=== PATIENT | female | born 1940 | race Caucasian/White ===

== ENCOUNTER 2016-06-02 15:30 | Inpatient (IN) | payer MEDICARE, BC ==
[2016-06-02] MEDS ORDERED: traMADol 50 MG TAB PO PRN (18:26)
[2016-06-02] MEDS ORDERED: PROCHLORPERAZINE 5 MG TAB PO PRN (18:26)
[2016-06-02 18:51] LABS: Basophils % (A) 0 %; CH 31.6; CHCM 32.6; Eosinophils # (A) 0.1 k/uL (0-0.7); Eosinophils % (A) 1 %; HCT 45.9 % (34.0-46.0); HDW 2.25; Luc # (Auto) 0.15; Luc % (Auto) 1; Lymphocytes # (A) 0.9 k/uL (1.0-4.8); Lymphocytes % (A) 9 %; MCH 31.8 pg (25.0-35.0); MCHC 32.6 g/dL (31.0-37.0); MCV 97.4 fL (80.0-100.0); Monocytes # (A) 0.5 k/uL (0-1.0); Monocytes % (A) 5 %; Neutrophils % (A) 84 %; RBC 4.71 m/uL (3.80-5.40); RDW 14.8 % (11.5-15.5); WBC 10.7 k/uL (3.8-10.6); WBC (Perox) 10.96
[2016-06-02 19:02] LABS: Anion Gap 7 mmol/L; Blood Urea Nitrogen 22 mg/dL (7-17); Calcium 8.4 mg/dL (8.4-10.2); Carbon Dioxide 24 mmol/L (22-30); Chloride 103 mmol/L (98-107); Glucose 116 mg/dL (74-99); Non-African American GFR(MDRD) >60 (>60 ml/min/1.73 sqM); Potassium 4.7 mmol/L (3.5-5.1); Sodium 134 mmol/L (137-145)
--- NOTE | 2016-06-02 19:19 | XR ---
EXAMINATION TYPE: XR chest 2V DATE OF EXAM: 06/02/2016 7:10 PM COMPARISON: Chest x-ray January 21, 2016. HISTORY: Shortness of breath TECHNIQUE: Frontal and lateral views of the chest are obtained. FINDINGS: There is chronic emphysematous change without suspicious focal air space opacity, pleural effusion, or pneumothorax seen. The cardiac silhouette size is stable and enlarged. Anterior fusion plate lower cervical spine is redemonstrated. Cholecystectomy clips are redemonstrated on lateral vie w. IMPRESSION: Chronic changes and cardiomegaly without acute pulmonary process. No significant change from prior.
--- NOTE | 2016-06-02 19:24 | CT ---
EXAMINATION TYPE: CT brain wo con DATE OF EXAM: 06/02/2016 7:11 PM HISTORY: Patient appears confused CT DLP: 1207 mGycm. Automated Exposure Control for Dose Reduction was Utilized. TECHNIQUE: CT scan of the head is performed without contrast. COMPARISON: None. FINDINGS: There is no acute intracranial hemorrhage or midline shift identified. There is diffuse v entricular and sulcal prominence consistent with diffuse age-related cerebral atrophy. There is low- attenuation in the periventricular white matter consistent with chronic small vessel ischemic change. The lenses are thinned bilaterally. Visualized paranasal sinuses are clear. IMPRESSION: No acute intracranial hemorrhage or midline shift. There is mild diffuse age-related ce rebral atrophy and mild to moderate chronic small vessel ischemic change noted.
[2016-06-02] MEDS: SYMBICORT 80-4.5 MCG INHALER INHALATION SCH (20:41)
[2016-06-02] MEDS: FUROSEMIDE 10 MG TAB PO SCH (23:12)
[2016-06-02] MEDS: ASPIRIN 81 MG CHEW PO SCH (23:12)
[2016-06-02] MEDS: POTASSIUM CHLORIDE ER 10 MEQ TAB.ER.PRT PO SCH (23:12)
[2016-06-02] MEDS: RIVAROXABAN 15 MG TAB PO SCH (23:12)
[2016-06-02 23:25] LABS: Appearance,Urine Turbid (Clear); Bacteria,Urine Many /hpf; Bilirubin,Urine Negative (Negative); Glucose,Urine (UA) Negative (Negative); Ketones,Urine Negative (Negative); Leukocyte Esterase,Urine Large (Negative); Nitrite,Urine Negative (Negative); PH, Urine 6.5 (5.0-8.0); Particle Count 164911; Protein,Urine 1+ (Negative); RBC,Urine 52 /hpf (0-5); Specific Gravity,Urine 1.015 (1.001-1.035); Squamous Epithelial Cell,Urine 14 /hpf (0-4); UA Billing (MACRO vs. MICRO) MICRO; Urobilinogen,Urine <2.0 mg/dL (<2.0); WBC,Urine >182 /hpf (0-5)
[2016-06-03] MEDS: SYMBICORT 80-4.5 MCG INHALER INHALATION SCH ×2 (07:23→21:34)
[2016-06-03] MEDS: RIVAROXABAN 15 MG TAB PO SCH ×2 (08:04→21:24)
[2016-06-03] MEDS: PANTOPRAZOLE 40 MG TABLET PO SCH (08:04)
[2016-06-03] MEDS: CHOLECALCIFEROL 1,000 UNIT TAB PO SCH (08:05)
[2016-06-03] MEDS: LOSARTAN 50 MG TAB PO SCH (08:05)
[2016-06-03] MEDS: ESCITALOPRAM 20 MG TAB PO SCH (08:05)
[2016-06-03] MEDS: LORATADINE 10 MG TAB PO SCH (08:05)
[2016-06-03] MEDS: ARTIFICIAL TEARS-HYPROMELLOSE DROPS 15 ML BTL BOTH EYES PRN (08:05)
[2016-06-03] MEDS: LEVOFLOXACIN 500 MG TAB PO SCH (12:34)
[2016-06-03 14:30] VITALS: BMI 34.1
--- NOTE | 2016-06-03 14:38 | US ---
EXAMINATION TYPE: US venous doppler duplex LE BI DATE OF EXAM: 06/03/2016 2:10 PM COMPARISON: See PACS CLINICAL HISTORY: calf tenderness. SIDE PERFORMED: VESSELS IMAGED: External Iliac Vein (EIV) Common Femoral Vein Deep Femoral Vein Greater Saphenous Vein * Femoral Vein Popliteal Vein Small Saphenous Vein * Proximal Calf Veins (* superficial vessels) Right Leg: Negative for DVT Left Leg: Negative for DVT Patient of large body habitus with poor venous return. IMPRESSION: No evidence for PE.
--- NOTE | 2016-06-03 14:39 | P.HPIM ---
History of Present Illness H&P Date: 06/03/16 Chief Complaint: Generalized weakness 76-year-old female who was a direct admission to be evaluated for frequent falls generalized weakness "legs just give out from under me. Patient was admitted for the above-mentioned symptoms. PT OT eval has been ordered. Patient reportedly on April 20 underwent back surgery per an orthopedic surgeon in [place] after the procedure the patient [facility] were patient developed a pulmonary emboli started on Xarelto was admitted from [facility] to [facility]. Patient recuperated and return back to [facility] to continue with the rehab had been home only one week. Patient stated after being home continue to feel fatigued and inability to participate in ADLs with increased confusion Patient did have a CAT scan of the brain without contrast that showed no acute intracranial hemorrhage. diffuse moderate to mild chronic small vessel ischemic changes noted patient did have a chest x-ray of the chest did not show any acute process Review of Systems Essentially unremarkable except as mentioned in the present illness Past Medical History Past Medical History: Asthma, Cancer, Chest Pain / Angina, Heart Failure, COPD, Deep Vein Thrombosis (DVT), GERD/Reflux, GI Bleed, Hyperlipidemia, Hypertension , Pulmonary Embolus (PE) Additional Past Medical History / Comment(s): HX MULT KIDNEY STONES ZENAIDA. BACK, NECK PAIN. HIATAL HERNIA. HX OF SKIN CA. POOR BALANCE, RECENT FALLS.POOR APPETITE PAST WEEK, C-DIFF >5 YEARS AGO History of Any Multi-Drug Resistant Organisms: None Reported Past Surgical History: Back Surgery, Cholecystectomy, Hysterectomy, Joint Replacement, Tonsillectomy Additional Past Surgical History / Comment(s): EYE LIFTS ZENAIDA. PARTIAL HYSTERECTOMY, NECK SURGERY X2, WRIST SURGERY, ZENAIDA KNEE REPLACEMENTS. Past Anesthesia/Blood Transfusion Reactions: Previous Problems w/ Anesthesia Additional Past Anesthesia/Blood Transfusion Reaction / Comment(s): WOKE UP WITH SEVERE HEADACHE. Past Psychological History: Anxiety, Depression Additional Psychological History / Comment(s): LIVES AT HOME WITH HER SPOUSE, HAS TOTAL 5 STEPS INTO HOME, GETS PT AND NURSE AIDE. HAS WALKER/W/C IF NEEDED. FAMILY STATED IF YOU HAVE ANY QUESTIONS ON PT CALL EITHER DAUGHTER WILDER AT [phone] OR JOSR-SON AT [phone]- BECAUSE D/T HUSBANDS MEDICAL ISSUES HE' S NOT RELIABLE SOURCE OF INFO. Smoking Status: Current every day smoker Past Alcohol Use History: Rare Additional Past Alcohol Use History / Comment(s): STARTED SMOKING 1965 CURRENTLY DOWN TO 3-4 CIG PER DAY Past Drug Use History: None Reported - Past Family History Mother Family Medical History: Cancer Additional Family Medical History / Comment(s): mother from kidney cancer Brother(s) Family Medical History: Cancer Additional Family Medical History / Comment(s): brother of kidney cancer Medications and Allergies Home Medications Medication Instructions Recorded Confirmed Type Fluticasone/Salmeterol [Advair 1 puff INHALATION RT-BID 10/30/14 06/02/16 History 250-50 Diskus] ALPRAZolam [Xanax] 0.5 mg PO TID PRN 06/02/16 06/02/16 History Aspirin EC [Ecotrin Low Dose] 81 mg PO HS 06/02/16 06/02/16 History Carboxymethylcellulose Sodium 1 drop BOTH EYES TID PRN 06/02/16 06/02/16 History [Refresh Tears] Cetirizine HCl [Zyrtec] 10 mg PO QAM 06/02/16 06/02/16 History Cholecalciferol [Vitamin D3] 2,000 unit PO DAILY 06/02/16 06/02/16 History Escitalopram [Lexapro] 20 mg PO QAM 06/02/16 06/02/16 History Furosemide [Lasix] 10 mg PO Q48H 06/02/16 06/02/16 History Losartan Potassium [Cozaar] 100 mg PO QAM 06/02/16 06/02/16 History Omeprazole 40 mg PO QAM 06/02/16 06/02/16 History Potassium Chloride ER [K-Dur 10] 10 meq PO Q48H 06/02/16 06/02/16 History Prochlorperazine [Compazine] 5 mg PO Q6HR PRN 06/02/16 06/02/16 History Rivaroxaban [Xarelto] 15 mg PO BID 06/02/16 06/02/16 History traMADol HCL [Ultram] 100 mg PO TID PRN 06/02/16 06/02/16 History Allergies Allergy/AdvReac Type Severity Reaction Status Date / Time adhesive Allergy Unknown Red , Verified 06/02/16 17:53 Irritated skin Penicillins Allergy Unknown Unknown Verified 12/06/14 11:38 Childhood Rtchoqz-Gvo-Rrf Reductase Allergy Unknown Verified 06/02/16 17:53 Inhibitor codeine AdvReac Intermediate Nausea & Verified 12/06/14 11:38 Vomiting Physical Exam Vitals: Vital Signs Temp Pulse Resp BP BP Pulse Ox 06/03/16 07:24 97 06/03/16 07:00 98.7 F 72 20 108/63 97 06/02/16 23:00 97.6 F 89 16 107/62 97 06/02/16 17:20 98.9 F 100 20 91/64 97 Intake and Output 06/02/16 06/03/16 06/03/16 22:59 06:59 14:59 Output Total 200 Balance -200 Output: Urine 200 Other: Voiding Method Bedpan # Voids 3 3 Weight 96 kg GENERAL APPEARANCE: 76-year-old female patient is alert, oriented, in no acute distress. VITAL SIGNS: Reviewed HEENT: Head is normocephalic and atraumatic. Pupils are equal and reactive. The nares are patent. Oropharynx is clear without lesions. NECK: Supple without lymphadenopathy. Traches midline. HEART: S1, S2. Regular rate and rhythm. No murmur noted denying chest pain LUNGS: No crackles or wheezes are heard. Adequate air movement bilaterally ABDOMEN: Soft, nontender, nondistended with good bowel sounds. No peritoneal signs. No palpable organomegaly or masses. EXTREMITIES: Normal skin color and turgor. No cyanosis, rash, ulceration, clubbing or edema. Radial pedal pulses are 2/4 bilaterally. NEUROLOGICAL: No focal deficits. Strength and sensation are grossly intact. Results CBC & Chem 7: 06/02/16 18:43 06/02/16 18:43 Labs: Abnormal Lab Results - Last 24 Hours (Table) 06/02/16 06/02/16 06/02/16 Range/Units 18:43 18:43 18:43 WBC 10.7 H (3.8-10.6) k/uL Plt Count 109 L (150-450) k/uL Neutrophils # 9.0 H (1.3-7.7) k/uL Lymphocytes # 0.9 L (1.0-4.8) k/uL D-Dimer 0.70 H (<0.60) mg/L FEU Sodium 134 L (137-145) mmol/L BUN 22 H (7-17) mg/dL Glucose 116 H (74-99) mg/dL TSH <0.015 L (0.465-4.680) mIU/L Urine Appearance (Clear) Urine Protein (Negative) Urine Blood (Negative) Ur Leukocyte Esterase (Negative) Urine RBC (0-5) /hpf Urine WBC (0-5) /hpf Urine WBC Clumps (None) /hpf Ur Squamous Epith Cells (0-4) /hpf Urine Bacteria (None) /hpf 06/02/16 Range/Units 20:25 WBC (3.8-10.6) k/uL Plt Count (150-450) k/uL Neutrophils # (1.3-7.7) k/uL Lymphocytes # (1.0-4.8) k/uL D-Dimer (<0.60) mg/L FEU Sodium (137-145) mmol/L BUN (7-17) mg/dL Glucose (74-99) mg/dL TSH (0.465-4.680) mIU/L Urine Appearance Turbid H (Clear) Urine Protein 1+ H (Negative) Urine Blood Moderate H (Negative) Ur Leukocyte Esterase Large H (Negative) Urine RBC 52 H (0-5) /hpf Urine WBC >182 H (0-5) /hpf Urine WBC Clumps Many H (None) /hpf Ur Squamous Epith Cells 14 H (0-4) /hpf Urine Bacteria Many H (None) /hpf Microbiology - Last 24 Hours (Table) 06/02/16 20:25 Urine Culture - Preliminary Urine,Voided Thrombosis Risk Factor Assmnt - Choose All That Apply Any of the Below Risk Factors Present?: Yes Each Factor Represents 1 point: Abnormal pulmonary function (COPD), Minor surgery planned Other Risk Factors: Yes Each Risk Factor Represents 2 Points: Age 61-74 years, Malignancy Each Risk Factor Represents 3 Points: History of DVT/PE Other congenital or acquired thrombophilia - If yes, enter type in comment: No Thrombosis Risk Factor Assessment Total Risk Factor Score: 9 Thrombosis Risk Factor Assessment Level: High Risk Assessment and Plan Plan: Impression Present on admission generalized weakness suspect due to deconditioning and prolonged hospitalization History of a pulmonary emboli on Xarelto diagnosed in April 2016 A recent back surgery 04/20/2016 Present on admission leukocytosis suspect reactive Present on admission uncomplicated UTI Present on admission a low TSH less than 0.015 Chronic physical debility Present on admission acute metabolic encephalopathy suspect due to UTI Plan Start Levaquin for the UTI Obtain a urine culture sent for culture and sensitivity Resume home meds as appropriate DVT and GI prophylaxis PT OT eval Repeat the TSH and free T4 follow up on results Follow-up on the pending Doppler studies Further recommendations pending internal audit senior manager to pursue the discharge plan family is requesting [facility] first choice subacute rehab The above dictated assessment and findings were discussed with dr coombs Impression and the plan of care have been dictated as directed. Cayla Pedro nurse practitioner acting as a scribe for dr coombs
--- NOTE | 2016-06-03 20:01 | P.CNNES ---
History of Present Illness Consult date: 06/03/16 History of Present Illness: The patient is a 76-year-old woman who was admitted directly from home because of history of frequent falls. The patient reports that she had recent back surgery on April 20 and she apparently went to [facility] rehab and then to home. According to the record patient had a pulmonary embolus and had been on Xarelto and admitted from [facility] to [facility]. When she returned to [facility] she did have some rehab and had been home only a week and then she developed trouble walking. Patient was admitted to the hospital and his found found to have a urinary tract infection and is being treated. She also has low TSH and chronic physical disability. The patient states she does not have any excessive pain in the back. She states her knees give out when she is walking. Review of Systems Eyes: denies blurred vision, denies pain Ears, nose, mouth and throat: Denies headache, Denies sore throat Cardiovascular: Denies chest pain, Denies shortness of breath Respiratory: Denies cough Genitourinary: Denies dysuria, Denies hematuria Musculoskeletal: Denies myalgias Integumentary: Denies pruritus, Denies rash Neurological: Denies numbness, Denies weakness Psychiatric: Denies anxiety, Denies depression Endocrine: Denies fatigue, Denies weight change Past Medical History Past Medical History: Asthma, Cancer, Chest Pain / Angina, Heart Failure, COPD, Deep Vein Thrombosis (DVT), GERD/Reflux, GI Bleed, Hyperlipidemia, Hypertension , Pulmonary Embolus (PE) Additional Past Medical History / Comment(s): HX MULT KIDNEY STONES ZENAIDA. BACK, NECK PAIN. HIATAL HERNIA. HX OF SKIN CA. POOR BALANCE, RECENT FALLS.POOR APPETITE PAST WEEK, C-DIFF >5 YEARS AGO History of Any Multi-Drug Resistant Organisms: None Reported Past Surgical History: Back Surgery, Cholecystectomy, Hysterectomy, Joint Replacement, Tonsillectomy Additional Past Surgical History / Comment(s): EYE LIFTS ZENAIDA. PARTIAL HYSTERECTOMY, NECK SURGERY X2, WRIST SURGERY, ZENAIDA KNEE REPLACEMENTS. Past Anesthesia/Blood Transfusion Reactions: Previous Problems w/ Anesthesia Additional Past Anesthesia/Blood Transfusion Reaction / Comment(s): WOKE UP WITH SEVERE HEADACHE. Past Psychological History: Anxiety, Depression Additional Psychological History / Comment(s): LIVES AT HOME WITH HER SPOUSE, HAS TOTAL 5 STEPS INTO HOME, GETS PT AND NURSE AIDE. HAS WALKER/W/C IF NEEDED. FAMILY STATED IF YOU HAVE ANY QUESTIONS ON PT CALL EITHER DAUGHTER WILDER AT [phone] OR JOSR-SON AT [phone]- BECAUSE D/T HUSBANDS MEDICAL ISSUES HE' S NOT RELIABLE SOURCE OF INFO. Smoking Status: Current every day smoker Past Alcohol Use History: Rare Additional Past Alcohol Use History / Comment(s): STARTED SMOKING 1965 CURRENTLY DOWN TO 3-4 CIG PER DAY Past Drug Use History: None Reported - Past Family History Mother Family Medical History: Cancer Additional Family Medical History / Comment(s): mother from kidney cancer Brother(s) Family Medical History: Cancer Additional Family Medical History / Comment(s): brother of kidney cancer Medications and Allergies Home Medications Medication Instructions Recorded Confirmed Type Fluticasone/Salmeterol [Advair 1 puff INHALATION RT-BID 10/30/14 06/02/16 History 250-50 Diskus] ALPRAZolam [Xanax] 0.5 mg PO TID PRN 06/02/16 06/02/16 History Aspirin EC [Ecotrin Low Dose] 81 mg PO HS 06/02/16 06/02/16 History Carboxymethylcellulose Sodium 1 drop BOTH EYES TID PRN 06/02/16 06/02/16 History [Refresh Tears] Cetirizine HCl [Zyrtec] 10 mg PO QAM 06/02/16 06/02/16 History Cholecalciferol [Vitamin D3] 2,000 unit PO DAILY 06/02/16 06/02/16 History Escitalopram [Lexapro] 20 mg PO QAM 06/02/16 06/02/16 History Furosemide [Lasix] 10 mg PO Q48H 06/02/16 06/02/16 History Losartan Potassium [Cozaar] 100 mg PO QAM 06/02/16 06/02/16 History Omeprazole 40 mg PO QAM 06/02/16 06/02/16 History Potassium Chloride ER [K-Dur 10] 10 meq PO Q48H 06/02/16 06/02/16 History Prochlorperazine [Compazine] 5 mg PO Q6HR PRN 06/02/16 06/02/16 History Rivaroxaban [Xarelto] 15 mg PO BID 06/02/16 06/02/16 History traMADol HCL [Ultram] 100 mg PO TID PRN 06/02/16 06/02/16 History Allergies Allergy/AdvReac Type Severity Reaction Status Date / Time adhesive Allergy Unknown Red , Verified 06/02/16 17:53 Irritated skin Penicillins Allergy Unknown Unknown Verified 12/06/14 11:38 Childhood Dxgpsxd-Say-Xtf Reductase Allergy Unknown Verified 06/02/16 17:53 Inhibitor codeine AdvReac Intermediate Nausea & Verified 12/06/14 11:38 Vomiting Physical Examination - Vital Signs Vital Signs: Vital Signs Temp Pulse Resp BP BP Pulse Ox 06/03/16 15:00 98.2 F 72 16 112/73 98 06/03/16 07:24 97 06/03/16 07:00 98.7 F 72 20 108/63 97 06/02/16 23:00 97.6 F 89 16 107/62 97 Intake and Output 06/03/16 06/03/16 06/03/16 06:59 14:59 22:59 Output Total 200 Balance -200 Output: Urine 200 Other: Voiding Method Bedside Commode # Voids 3 3 Weight 96 kg Patient Weight 06/04/16 06:59 Weight 96 kg - Constitutional General appearance: cooperative - EENT EENT: PERRL - Respiratory Respiratory: lungs clear - Cardiovascular Cardiovascular: regular rate, normal S1, normal S2 - Integumentary Integumentary: normal - Neurologic Mental status she was awake alert and oriented 3 was no a aphasia or dysarthria Cranial nerve examination: PERRL, EOMI, VFF, V1/V2/V3 grossly intact, face symmetric, tongue midline Sensorimotor examination: intact Motor examination - right side: 4/5: hip flexors, dorsiflexion, 5/5: biceps, triceps, wrist extension, countersinker, knee extensors Motor examination - left side: 5/5: biceps, triceps, wrist extension, countersinker, hip flexors, dorsiflexion Detailed sensory examination: intact - Psychiatric Psychiatric: mood/affect appropriate Results - Laboratory Findings CBC and BMP: 06/02/16 18:43 06/02/16 18:43 Abnormal Lab Findings: Abnormal Labs 06/02/16 06/02/16 06/02/16 18:43 18:43 18:43 WBC 10.7 H Plt Count 109 L Neutrophils # 9.0 H Lymphocytes # 0.9 L D-Dimer 0.70 H Sodium 134 L BUN 22 H Glucose 116 H TSH <0.015 L Urine Appearance Urine Protein Urine Blood Ur Leukocyte Esterase Urine RBC Urine WBC Urine WBC Clumps Ur Squamous Epith Cells Urine Bacteria 06/02/16 20:25 WBC Plt Count Neutrophils # Lymphocytes # D-Dimer Sodium BUN Glucose TSH Urine Appearance Turbid H Urine Protein 1+ H Urine Blood Moderate H Ur Leukocyte Esterase Large H Urine RBC 52 H Urine WBC >182 H Urine WBC Clumps Many H Ur Squamous Epith Cells 14 H Urine Bacteria Many H Assessment and Plan (1) Recurrent falls Status: Acute Code(s): R29.6 - REPEATED FALLS (2) Weakness Status: Acute Code(s): R53.1 - WEAKNESS (3) History of back surgery Status: Chronic Code(s): Z98.890 - OTHER SPECIFIED POSTPROCEDURAL STATES Plan: The patient is a 76-year-old woman with history of recurrent falls. She complained that her knees give out on her. Patient had recent back surgery but no significant back pain. The patient had surgery on April 20 and has been at rehab. She is admitted with a urinary tract infection and a low TSH count. Neurologic examination she has generalized weakness. She is able to lift both legs up against gravity and lying down. Recommend further evaluation with physical therapy and occupational therapy. Also we'll check CT of the lumbar spine
--- NOTE | 2016-06-03 20:51 | CT ---
EXAMINATION TYPE: CT lumbar spine wo con DATE OF EXAM: 06/03/2016 8:31 PM COMPARISON: NONE HISTORY: Frequent falls and pain down legs. CT DLP: 988.00 mGycm Automated exposure control for dose reduction was used. Unenhanced CT of the lumbar spine was performed. Bone and soft tissue window settings are submitted as well as coronal and sagittal reconstructions. There is 5 mm anterior subluxation of L4 in relation L5. There is posterior fusion surgery at L4-5 wi th rods and screws bilaterally. There is a L4-5 disc prosthesis. There is a 7 x 2.5 cm fluid collecti on posteriorly. There is laminectomy noted at L4 on the left side. There is no paraspinal mass. There is a mild lumbar levoscoliosis. There is no compression fracture. There is some narrowing at the L1- 2 disc space with spurring and vacuum disc. Abdominal aorta is atheromatous. IMPRESSION: Laminectomy defect. Posterior epidural fluid and subcutaneous fluid related to the surgery. Spinal ca nal is not well evaluated due to the metal artifact and lack of any contrast. There has been improvem ent of the spinal stenosis at L4-5 compared to the preoperative exam of 10/02/2015.
[2016-06-03] MEDS: ASPIRIN 81 MG CHEW PO SCH (21:24)
[2016-06-04] MEDS: SYMBICORT 80-4.5 MCG INHALER INHALATION SCH ×2 (08:45→20:24)
[2016-06-04] MEDS: RIVAROXABAN 15 MG TAB PO SCH ×2 (09:30→21:20)
[2016-06-04] MEDS: LOSARTAN 50 MG TAB PO SCH (09:30)
[2016-06-04] MEDS: ARTIFICIAL TEARS-HYPROMELLOSE DROPS 15 ML BTL BOTH EYES PRN ×2 (09:31→21:20)
[2016-06-04] MEDS: ESCITALOPRAM 20 MG TAB PO SCH (09:31)
[2016-06-04] MEDS: PANTOPRAZOLE 40 MG TABLET PO SCH (09:31)
[2016-06-04] MEDS: LORATADINE 10 MG TAB PO SCH (09:31)
[2016-06-04 09:33] LABS: ALT 37 U/L (9-52); AST 17 U/L (14-36); Alkaline Phosphatase 116 U/L (38-126); Anion Gap 8 mmol/L; Blood Urea Nitrogen 24 mg/dL (7-17); Calcium 8.4 mg/dL (8.4-10.2); Carbon Dioxide 26 mmol/L (22-30); Chloride 107 mmol/L (98-107); Glucose 102 mg/dL (74-99); Non-African American GFR(MDRD) >60 (>60 ml/min/1.73 sqM); Potassium 4.1 mmol/L (3.5-5.1); Sodium 141 mmol/L (137-145); Total Bilirubin 0.5 mg/dL (0.2-1.3)
--- NOTE | 2016-06-04 12:40 | P.PN ---
Subjective 76-year-old female being seen resting in bedfollow-up visit on a patient is being evaluated for history of frequent falls with a recent back surgery. Patient's been followed by physical and occupational therapy. Needs moderate assist for bed mobility and transfer from bed to chair. Patient would benefit from subacute rehab patient is recuperating from a recent back surgerydone in April 2016 and [place] by a doctor dada Review the CT of the lumbar spine. Does show laminectomy defect. Posterior epidural fluid and subcutaneous fluid related to the surgerythere is a 7 x 2.5 cm fluid collection posterior Objective - Vital Signs Vital signs: Vital Signs Temp 97.3 F L 06/04/16 07:00 Pulse 75 06/04/16 07:00 Resp 16 06/04/16 07:00 BP 120/80 06/04/16 07:00 Pulse Ox 95 06/04/16 07:00 Intake & Output 06/03/16 06/04/16 06/04/16 18:59 06:59 18:59 Output Total 200 Balance -200 Weight 96 kg Output: Urine 200 Other: Voiding Method Bedside Commode Bedside Commode Bedside Commode # Voids 3 3 - Exam physical exam 76-year-old female resting in bed oriented to self and place appears in no acute distress Lungs adequate air movement bilaterally Heart S1-S2 audible regular Abdomen soft nontender nondistended bowel tones present no stool able to use a bedside commode with assist extremities will move extremities appropriately to simple commands no edema noted - Labs CBC & Chem 7: 06/02/16 18:43 06/04/16 08:52 Labs: Abnormal Lab Results - Last 24 Hours (Table) 06/04/16 Range/Units 08:52 BUN 24 H (7-17) mg/dL Glucose 102 H (74-99) mg/dL Total Protein 5.0 L (6.3-8.2) g/dL Albumin 2.5 L (3.5-5.0) g/dL Microbiology - Last 24 Hours (Table) 06/02/16 20:25 Urine Culture - Preliminary Urine,Voided Assessment and Plan Plan: Impression Present on admission generalized weakness suspect due to deconditioning and prolonged hospitalization History of a pulmonary emboli on Xarelto diagnosed in April 2016 A recent back surgery 04/20/2016 Present on admission leukocytosis suspect reactive Present on admission uncomplicated UTI Present on admission a low TSH less than 0.015 with a normal free T4 of 1.38 Chronic physical debility Present on admission acute metabolic encephalopathy suspect due to UTI history of frequent falls CT of the lumbar spine without contrast done on June 03 shows laminectomy defect with a 7 x 2.5 cm fluid collection posterior no compression fracture bilateral calf Pain with no evidence of a DVT on venous Doppler studies Mild protein calorie malnutrition suspect due to poor caloric intake Plan Start Levaquin for the UTI Obtain a urine culture sent for culture and sensitivity Resume home meds as appropriate DVT and GI prophylaxis PT OT eval Further recommendations pending parts manager to pursue the discharge plan family is requesting [facility] first choice subacute rehab The above dictated assessment and findings were discussed with dr coombs Impression and the plan of care have been dictated as directed. Cayla Pedro nurse practitioner acting as a scribe for dr coombs Time with Patient: Greater than 30
[2016-06-04] MEDS: CHOLECALCIFEROL 1,000 UNIT TAB PO SCH (12:43)
[2016-06-04] MEDS: LEVOFLOXACIN 500 MG TAB PO SCH (12:43)
[2016-06-04] MEDS: FUROSEMIDE 10 MG TAB PO SCH (17:45)
[2016-06-04] MEDS: POTASSIUM CHLORIDE ER 10 MEQ TAB.ER.PRT PO SCH (17:45)
[2016-06-04] MEDS: ASPIRIN 81 MG CHEW PO SCH (21:20)
[2016-06-05] MEDS: LORATADINE 10 MG TAB PO SCH (10:14)
[2016-06-05] MEDS: PANTOPRAZOLE 40 MG TABLET PO SCH (10:14)
[2016-06-05] MEDS: LOSARTAN 50 MG TAB PO SCH (10:14)
[2016-06-05] MEDS: ESCITALOPRAM 20 MG TAB PO SCH (10:14)
[2016-06-05] MEDS: RIVAROXABAN 15 MG TAB PO SCH ×2 (10:15→21:42)
[2016-06-05] MEDS: CHOLECALCIFEROL 1,000 UNIT TAB PO SCH (10:18)
[2016-06-05] MEDS: ALPRAZolam 0.5 MG TAB PO PRN ×2 (10:18→21:42)
[2016-06-05] MEDS: LEVOFLOXACIN 500 MG TAB PO SCH (10:19)
[2016-06-05] MEDS: SYMBICORT 80-4.5 MCG INHALER INHALATION SCH ×2 (12:26→20:58)
[2016-06-05] MEDS: NICOTINE 21MG/24HR PATCH TRANSDERM SCH (13:43)
[2016-06-05] MEDS: ASPIRIN 81 MG CHEW PO SCH (21:42)
[2016-06-06] MEDS: SYMBICORT 80-4.5 MCG INHALER INHALATION SCH ×2 (07:56→20:47)
[2016-06-06] MEDS: PANTOPRAZOLE 40 MG TABLET PO SCH (08:08)
[2016-06-06] MEDS: RIVAROXABAN 15 MG TAB PO SCH ×2 (08:08→20:59)
[2016-06-06] MEDS: ESCITALOPRAM 20 MG TAB PO SCH (08:08)
[2016-06-06] MEDS: NICOTINE 21MG/24HR PATCH TRANSDERM SCH (08:08)
[2016-06-06] MEDS: LOSARTAN 50 MG TAB PO SCH (08:08)
[2016-06-06] MEDS: LORATADINE 10 MG TAB PO SCH (08:08)
[2016-06-06] MEDS: ALPRAZolam 0.5 MG TAB PO PRN ×2 (08:12→21:02)
[2016-06-06] MEDS: CHOLECALCIFEROL 1,000 UNIT TAB PO SCH (12:31)
[2016-06-06] MEDS: LEVOFLOXACIN 500 MG TAB PO SCH (12:31)
[2016-06-06] MEDS: POTASSIUM CHLORIDE ER 10 MEQ TAB.ER.PRT PO SCH (18:25)
[2016-06-06] MEDS: FUROSEMIDE 10 MG TAB PO SCH (18:25)
--- NOTE | 2016-06-06 20:28 | PN ---
DATE OF SERVICE: 06/05/2016 76-year-old white female who is being treated for UTI metabolic encephalopathy. She has also a pocket of fluid around the lumbar surgical area, which we do not think is affecting her ability to walk as she is improving. Her breathing is ( ) we are treating her for metabolic encephalopathy secondary to urinary tract infection. ( ) she is a two-person assist, bed to chair and ambulation is slowly improving. We are going to watch her another 24 hours and possibly discharge home tomorrow. LUNGS: Clear. CARDIOVASCULAR: S1, S2. PSYCH: Fair mood and affect. GI: Soft. HEMATOLOGIC: Negative Homans. ASSESSMENT: 1. Urinary tract infection. 2. Metabolic encephalopathy. 3. Hypertension. 4. Allergic rhinitis. 5. Gastroesophageal reflux disease. 6. History of atrial fibrillation. Continue with current treatment. Possibly discharge her home tomorrow if her ambulation is improved.
--- NOTE | 2016-06-06 20:30 | PN ---
DATE OF SERVICE: 06/06/2016. SUBJECTIVE: This is a 76-year-old white female who is felt ready to go home. She has increased her ambulation. She is short of breath going to the bathroom. She was found to have a atrial fibrillation with rapid ventricular response up to 170s in the bathroom at which time we held discharge and cardiology re-evaluate her. CARDIOVASCULAR: Irregularly irregular rhythm. Tachy. LUNGS: Clear. GI: Soft. HEMATOLOGIC: Negative Homans. PSYCHIATRIC: Fair mood and affect. ASSESSMENT: 1. Urinary tract infection. 2. Systemic inflammatory response syndrome secondary to urinary tract infection. 3. Metabolic encephalopathy. 4. Atrial fibrillation with rapid ventricular response. PLAN: Continue current treatments and have cardiology see her and watch her on telemetry another 24 more hours prior to discharge.
[2016-06-06 20:40] LABS: Magnesium 1.8 mg/dL (1.6-2.3)
[2016-06-06] MEDS: ASPIRIN 81 MG CHEW PO SCH (20:59)
[2016-06-06] MEDS: ATENOLOL 12.5 MG TAB PO SCH (20:59)
[2016-06-07 07:46] VITALS: BP 113/65; PULSE 62; RESP 19; TEMP 97.7
[2016-06-07] MEDS: SYMBICORT 80-4.5 MCG INHALER INHALATION SCH (08:22)
[2016-06-07] MEDS: PANTOPRAZOLE 40 MG TABLET PO SCH ×2 (08:29→08:37)
[2016-06-07] MEDS: LORATADINE 10 MG TAB PO SCH (08:29)
[2016-06-07] MEDS: ATENOLOL 12.5 MG TAB PO SCH (08:29)
[2016-06-07] MEDS: ESCITALOPRAM 20 MG TAB PO SCH (08:29)
[2016-06-07] MEDS: LOSARTAN 50 MG TAB PO SCH (08:29)
[2016-06-07] MEDS: RIVAROXABAN 15 MG TAB PO SCH (08:30)
[2016-06-07] MEDS: NICOTINE 21MG/24HR PATCH TRANSDERM SCH (08:35)
[2016-06-07 08:51] LABS: ALT 34 U/L (9-52); AST 16 U/L (14-36); Alkaline Phosphatase 87 U/L (38-126); Anion Gap 7 mmol/L; Blood Urea Nitrogen 23 mg/dL (7-17); Calcium 8.8 mg/dL (8.4-10.2); Carbon Dioxide 27 mmol/L (22-30); Chloride 108 mmol/L (98-107); Glucose 77 mg/dL (74-99); Non-African American GFR(MDRD) >60 (>60 ml/min/1.73 sqM); Potassium 4.5 mmol/L (3.5-5.1); Sodium 142 mmol/L (137-145); Total Bilirubin 0.7 mg/dL (0.2-1.3); Total Protein 5.2 g/dL (6.3-8.2)
[2016-06-07 09:09] LABS: Basophils % (A) 0 %; CH 31.6; CHCM 32.2; Eosinophils # (A) 0.1 k/uL (0-0.7); Eosinophils % (A) 2 %; HCT 42.6 % (34.0-46.0); HDW 2.38; HGB 13.5 gm/dL (11.4-16.0); Luc # (Auto) 0.16; Luc % (Auto) 3; Lymphocytes # (A) 1.6 k/uL (1.0-4.8); Lymphocytes % (A) 24 %; MCH 31.3 pg (25.0-35.0); MCHC 31.7 g/dL (31.0-37.0); MCV 98.6 fL (80.0-100.0); Mean Platelet Volume 7.7; Monocytes # (A) 0.3 k/uL (0-1.0); Monocytes % (A) 5 %; Neutrophils # (A) 4.4 k/uL (1.3-7.7); Neutrophils % (A) 66 %; RBC 4.32 m/uL (3.80-5.40); RDW 14.7 % (11.5-15.5); WBC 6.6 k/uL (3.8-10.6); WBC (Perox) 6.83
[2016-06-07] MEDS: ALPRAZolam 0.5 MG TAB PO PRN (10:56)
[2016-06-07] MEDS: CHOLECALCIFEROL 1,000 UNIT TAB PO SCH (11:03)
[2016-06-07] MEDS: LEVOFLOXACIN 500 MG TAB PO SCH (11:04)
--- NOTE | 2016-06-07 12:55 | P.DS ---
Providers Date of admission: 06/02/16 17:09 Expected date of discharge: 06/07/16 Attending physician: Ramón Coombs Consults: 06/02/16 19:51 Consult Physician Routine Consulting Provider: Racquel Vick Consult Reason/Comments: AMS/weakness Do you want consulting provider notified?: Yes 06/06/16 10:54 Consult Physician Urgent Consulting Provider: Sasha Meyer Consult Reason/Comments: new onset a fib (HR 160), med recommendations and discharge instruction Do you want consulting provider notified?: Yes Primary care physician: [facility] Course: 76-year-old female who was a direct admission to be evaluated for frequent falls generalized weakness "legs just give out from under me. Patient was admitted for the above-mentioned symptoms. PT OT eval has been ordered. Patient reportedly on April 20 underwent back surgery per an orthopedic surgeon in [place] after the procedure the patient [facility] were patient developed a pulmonary emboli started on Xarelto was admitted from [facility] to [facility] Patient recuperated and return back to [facility] to continue with the rehab had been home only one week. Patient stated after being home continue to feel fatigued and inability to participate in ADLs with increased confusion Patient did have a CAT scan of the brain without contrast that showed no acute intracranial hemorrhage. diffuse moderate to mild chronic small vessel ischemic changes noted patient did have a chest x-ray of the chest did not show any acute process Patient was seen by neurology Dr. Vick. Patient was treated for a urinary tract infection in the low TSH, was repeated with a normal free T4. The UTI was treated with Levaquin. Physical and occupational therapy did see patient over the course of the hospitalization with therapy patient was able to ambulate with the use of rolled walker from the bed to the bathroom. Patient was adamant about not being discharged to an ECF facility. Patient was adamant that she would be discharged home lives with her has a daughter that can help. This admission patient had one brief episode with a heart rate did go up to 130 on the night of June 05. Patient was started on low-dose beta josie therapy and there were no further episodes patient's rate was controlled after initiating a low-dose beta josie maintain sinus rhythm patient was able to increase her activity. The attending felt the patient could be discharged there were no further episodes of a increased heart rate with a concern for atrial fibrillation the monitor maintaining sinus rhythm additionally patient's plan was for the patient to follow-up with the surgeon who did her back surgery patient would arrange the outpatient follow-up. Patient was maintained on Xarelto throughout the hospitalization manager pricing did set up for home care and home physical therapy Impression Present on admission generalized weakness suspect due to deconditioning and prolonged hospitalization History of a pulmonary emboli on Xarelto diagnosed in April 2016 A recent back surgery 04/20/2016 reportedly done at [facility] Present on admission leukocytosis suspect reactive Present on admission uncomplicated UTI Present on admission a low TSH less than 0.015 with a normal free T4 of 1.38 Chronic physical debility uses a walker Present on admission acute metabolic encephalopathy suspect due to UTI history of frequent falls CT of the lumbar spine without contrast done on June 03 shows laminectomy defect with a 7 x 2.5 cm fluid collection posterior no compression fracture bilateral calf Pain with no evidence of a DVT on venous Doppler studies Mild protein calorie malnutrition suspect due to poor caloric intake Isolated lone episode of paroxysmal atrial fibrillation could not be ruled out with rapid ventricular response resolved no further episodes The above dictated assessment and findings were discussed with dr coombs Impression and the plan of care have been dictated as directed. Cayla Pedro nurse practitioner acting as a scribe for dr coombs Plan - Discharge Summary New Discharge Prescriptions: Atenolol [Tenormin] 12.5 mg PO BID #60 dose Levofloxacin [Levaquin] 500 mg PO Q24H #7 tab Discharge Medication List Fluticasone/Salmeterol [Advair 250-50 Diskus] 1 puff INHALATION RT-BID 10/30/14 [History] ALPRAZolam [Xanax] 0.5 mg PO TID PRN 06/02/16 [History] Aspirin EC [Ecotrin Low Dose] 81 mg PO HS 06/02/16 [History] Carboxymethylcellulose Sodium [Refresh Tears] 1 drop BOTH EYES TID PRN 06/02/16 [History] Cetirizine HCl [Zyrtec] 10 mg PO QAM 06/02/16 [History] Cholecalciferol [Vitamin D3] 2,000 unit PO DAILY 06/02/16 [History] Escitalopram [Lexapro] 20 mg PO QAM 06/02/16 [History] Furosemide [Lasix] 10 mg PO Q48H 06/02/16 [History] Losartan Potassium [Cozaar] 100 mg PO QAM 06/02/16 [History] Omeprazole 40 mg PO QAM 06/02/16 [History] Potassium Chloride ER [K-Dur 10] 10 meq PO Q48H 06/02/16 [History] Prochlorperazine [Compazine] 5 mg PO Q6HR PRN 06/02/16 [History] Rivaroxaban [Xarelto] 15 mg PO BID 06/02/16 [History] traMADol HCL [Ultram] 100 mg PO TID PRN 06/02/16 [History] Atenolol [Tenormin] 12.5 mg PO BID #60 dose 06/07/16 [Rx] Levofloxacin [Levaquin] 500 mg PO Q24H #7 tab 06/07/16 [Rx] Nicotine 21Mg/24Hr Patch [Habitrol] 1 patch TRANSDERM DAILY patch 06/07/16 [Rx] Follow up Appointment(s)/Referral(s): [facility], [NON-STAFF] - 1 Week Ramón Coombs MD [Primary Care Provider] - 06/09/16 Discharge Disposition: HOME WITH HOME HEALTH SERVICES
--- NOTE | 2016-06-08 12:19 | ECHOF ---
Referral Reason:past afib rvr MEASUREMENTS -------- HEIGHT: 167.6 cm WEIGHT: 95.7 kg BP: RVIDd: 2.6 cm (< 3.3) IVSd: 1.3 cm (0.6 - 1.1) LVIDd: 3.5 cm (3.9 - 5.3) LVPWd: 1.3 cm (0.6 - 1.1) IVSs: 1.9 cm LVIDs: 2.3 cm LVPWs: 1.6 cm Ao Diam: 3.1 cm (2.0 - 3.7) AV Cusp: 2.0 cm (1.5 - 2.6) LA Diam: 2.8 cm (2.7 - 3.8) MV EXCURSION: 8.677 mm (> 18.000) MV EF SLOPE: 73 mm/s (70 - 150) EPSS: 0.8 cm MV E Gilles: 0.86 m/s MV DecT: 263 ms MV A Gilles: 1.05 m/s MV E/A Ratio: 0.82 RAP: 5.00 mmHg RVSP: 24.79 mmHg FINDINGS -------- Sinus rhythm. This was a technically good study. There is mild concentric left ventricular hypertrophy. Overall left ventricular systolic function is normal with, an EF between 55 - 60 %. The right ventricle is normal in size and function. The left atrium is normal in size. The right atrium is normal in size. The aortic valve is trileaflet, and appears structurally normal. No aortic stenosis or regurgitation. The mitral valve leaflets are mildly thickened. Mild mitral regurgitation is present. Mild tricuspid regurgitation present. The right ventricular systolic pressure, as measured by Doppler, is 24.79mmHg. Pulmonic valve appears structurally normal. The aortic root size is normal. The pericardium is normal. CONCLUSIONS -------- 1. Sinus rhythm. 2. Mild mitral regurgitation is present. 3. Mild tricuspid regurgitation present. 4. The right ventricular systolic pressure, as measured by Doppler, is 24.79mmHg. 5. Pulmonic valve appears structurally normal. 6. The aortic root size is normal. 7. The pericardium is normal. 8. This was a technically good study. 9. There is mild concentric left ventricular hypertrophy. 10. Overall left ventricular systolic function is normal with, an EF between 55 - 60 %. 11. The right ventricle is normal in size and function. 12. The left atrium is normal in size. 13. The right atrium is normal in size. 14. The aortic valve is trileaflet, and appears structurally normal. No aortic stenosis or regurgitation. 15. The mitral valve leaflets are mildly thickened. AEROGRAPHER: Carie Sterling RDCS
== END 2016-06-07 14:41 | disposition home health service (06) | DRG 947 ==
LOC: 4MS4W 17:09
PROVIDERS: ADMIT Family Medicine; ATTEND Family Medicine
DX: R53.1 Weakness (principal); G93.41 Metabolic encephalopathy; I50.9 Heart failure, unspecified; N39.0 Urinary tract infection, site not specified; E44.1 Mild protein-calorie malnutrition; I11.0 Hypertensive heart disease with heart failure; J44.9 Chronic obstructive pulmonary disease, unspecified; I48.0 Paroxysmal atrial fibrillation; R29.6 Repeated falls; I67.9 Cerebrovascular disease, unspecified; K44.9 Diaphragmatic hernia without obstruction or gangrene; J45.909 Unspecified asthma, uncomplicated; K21.9 Gastro-esophageal reflux disease without esophagitis; M79.661 Pain in right lower leg; M79.662 Pain in left lower leg; M54.2 Cervicalgia; E78.5 Hyperlipidemia, unspecified; R94.6 Abnormal results of thyroid function studies; M54.9 Dorsalgia, unspecified; F32.9 Major depressive disorder, single episode, unspecified; D72.829 Elevated white blood cell count, unspecified; F41.9 Anxiety disorder, unspecified; F17.210 Nicotine dependence, cigarettes, uncomplicated; Z80.51 Family history of malignant neoplasm of kidney; Z96.653 Presence of artificial knee joint, bilateral; Z79.899 Other long term (current) drug therapy; Z87.442 Personal history of urinary calculi; Z86.711 Personal history of pulmonary embolism; Z91.81 History of falling; Z85.828 Personal history of other malignant neoplasm of skin; Z86.19 Personal history of other infectious and parasitic diseases; Z87.19 Personal history of other diseases of the digestive system; Z88.5 Allergy status to narcotic agent; Z88.0 Allergy status to penicillin; Z88.8 Allergy status to other drugs, medicaments and biological substances; Z91.048 Other nonmedicinal substance allergy status; Z71.3 Dietary counseling and surveillance; Z98.890 Other specified postprocedural states; Z68.34 Body mass index [BMI] 34.0-34.9, adult; Z79.01 Long term (current) use of anticoagulants; Z79.82 Long term (current) use of aspirin; Z79.891 Long term (current) use of opiate analgesic; Z79.51 Long term (current) use of inhaled steroids; Z90.49 Acquired absence of other specified parts of digestive tract; Z90.710 Acquired absence of both cervix and uterus
CPT/HCPCS: 70450; 71020; 72131; 80048; 80053; 81001; 83735; 84439; 84443; 84484; 85025; 85379; 87077; 87086; 87186; 93306; 93970; 94640

== ENCOUNTER → 2016-07-01 | Outpatient (CLI) | payer MEDICARE, BC ==
--- NOTE | 2016-07-01 13:54 | MR ---
EXAMINATION TYPE: MR cervical spine wo con DATE OF EXAM: 07/01/2016 12:24 PM COMPARISON: 12/02/2015 HISTORY: csp radiculopathy TECHNIQUE: Multiplanar, multisequence images of the cervical spine were acquired. C2-C3: No significant foraminal encroachment. Small central disc bulge causes minimal anterior mass e ffect on the thecal sac. C3-C4: Right posterior paracentral disc herniation causes anterolateral mass effect on the thecal sac , there may be contact with the cervical cord, there is moderate spinal stenosis. Right-sided foramin al encroachment is present due to uncovertebral joint hypertrophy and facet arthropathy change. Left- sided foraminal encroachment is present to lesser degree. FINDINGS: Similar to prior exam. C4-C5: Foraminal encroachment is mild right greater than left, circumferential disc bulge causes mild effacement of the anterior thecal sac. There is mild central stenosis. C5-C6: No significant central stenosis or disc herniation. Mild bilateral foraminal encroachment and uncovertebral joint hypertrophy similar to prior exam. C6-C7: No evident disc herniation or significant central stenosis. C7-T1: Eccentric disc bulge causes some anterolateral mass effect to the left of midline similar to p rior exam, there is some left-sided foraminal approach but mild. No significant central stenosis. IMPRESSION: 1.Findings are similar to previous exam. Foraminal encroachment no significant C3-C4 on the right, th ere is multilevel spinal stenosis as described. 2. Sagittal disc bulge in the upper thoracic spine is also incidentally noted and stable.
== END | disposition home or self-care (01) ==
LOC: RADMRIMAIN 11:36
PROVIDERS: ATTEND Neurological Surgery
DX: M48.02 Spinal stenosis, cervical region (principal)
CPT/HCPCS: 72141

== ENCOUNTER → 2016-09-10 | Outpatient (CLI) | payer MEDICARE, BC ==
--- NOTE | 2016-09-10 11:14 | MM ---
Reason for exam: follow-up at short interval from prior study. Last mammogram was performed 9 months ago. History: Patient is postmenopausal and has history of other cancer at age 65. Benign US biopsy breast VAD RT of the right breast, December 15, 2015. Physical Findings: Nurse did not find any significant physical abnormalities on exam. MG 3D Diag Mammo W/Cad RT CC and MLO view(s) were taken of the right breast. Prior study comparison: December 15, 2015, right breast MG diagnostic mammo RT wo CAD. November 28, 2015, bilateral MG 3d screening mammo w/cad. There are scattered fibroglandular densities. There are secretory calcifications in the right breast. Previous ultrasound biopsy in the right breast. No significant new findings when compared with previous films. These results were verbally communicated with the patient and result sheet given to the patient on 09/10/16. ASSESSMENT: Benign, BI-RAD 2 RECOMMENDATION: Routine screening mammogram of both breasts in 2 months. Back on schedule November 2016.
== END | disposition home or self-care (01) ==
LOC: RADMAMWWP 10:18
PROVIDERS: ATTEND Family Medicine
DX: R92.8 Other abnormal and inconclusive findings on diagnostic imaging of breast (principal)
CPT/HCPCS: G0206; G0279

== ENCOUNTER → 2016-11-19 | Outpatient (CLI) | payer MEDICARE, BC ==
--- NOTE | 2016-11-19 11:55 | XR ---
EXAMINATION TYPE: XR chest 2V DATE OF EXAM: 11/19/2016 COMPARISON: 06/02/2016 HISTORY: Right lower rib pain after fall TECHNIQUE: Frontal and lateral views of the chest are obtained. FINDINGS: There is no focal air space opacity, pleural effusion, or pneumothorax seen. The cardiac silhouette size is mildly enlarged. No displaced fracture is identified although visualization of the lower ribs is suboptimal. Multilevel degenerative changes of the thoracic spine are noted as well as cervical fusion device and cholecystectomy clips. IMPRESSION: 1. No acute cardiopulmonary process. 2. No displaced fracture is identified, however visualization of the lower ribs is suboptimal and rad iographic rib series could be performed if there is further clinical concern.
== END | disposition home or self-care (01) ==
LOC: RADXRMAIN 10:45
PROVIDERS: ATTEND Family Medicine
DX: R07.1 Chest pain on breathing (principal)
CPT/HCPCS: 71020

== ENCOUNTER 2017-12-14 13:43 | Emergency (ER) | payer MEDICARE, BC ==
[2017-12-14 14:02] VITALS: RESP 18
--- NOTE | 2017-12-14 14:03 | ED ---
General Adult HPI - General Stated complaint: FALL - History of Present Illness Initial comments: Dictation was produced using [employer] dictation software. please excuse any grammatical, word or spelling errors. Chief Complaint: 77-year-old female with multiple comorbidities presents with fall. History of Present Illness: Patient is a 7-year-old female who was in bed. She was lying in bed when she was trying to fix her diaper when she rolled over. She planted with her right upper extremity. She is reports fall on outstretched hand and merely after she noted severe right elbow pain. Patient also states she did hit her head. Initially she was not able to move her right fingers. EMS arrived on scene and during transfer allegedly reduced the elbow which initially. To be a gross deformity. Patient states since after that she was able to move her fingers once again. Currently she denies any neuro deficits. Patient is on anticoagulation. She denies any right shoulder pain. No other complaints. The ROS documented in this emergency department record has been reviewed and confirmed by me. Those systems with pertinent positive or negative responses have been documented in the HPI. All other systems are other negative and/or noncontributory. - Related Data Home Medications Medication Instructions Recorded Confirmed ALPRAZolam [Xanax] 0.5 mg PO TID PRN 06/02/16 12/14/17 Carboxymethylcellulose Sodium 1 drop BOTH EYES TID PRN 06/02/16 12/14/17 [Refresh Tears] Rivaroxaban [Xarelto] 15 mg PO BID 06/02/16 12/14/17 traMADol HCL [Ultram] 50 mg PO BID 06/02/16 12/14/17 Metoprolol Tartrate [Lopressor] 25 mg PO DAILY 12/14/17 12/14/17 Primidone [Mysoline] 100 mg PO DAILY 12/14/17 12/14/17 lamoTRIgine [LaMICtal] 25 mg PO DAILY 12/14/17 12/14/17 Allergies Allergy/AdvReac Type Severity Reaction Status Date / Time adhesive Allergy Unknown Red , Verified 12/14/17 15:13 Irritated skin Penicillins Allergy Unknown Unknown Verified 12/14/17 15:13 Childhood Herwrti-Huq-Rvg Reductase Allergy Unknown Verified 12/14/17 15:13 Inhibitor codeine AdvReac Intermediate Nausea & Verified 12/14/17 15:13 Vomiting Review of Systems ROS Statement: Those systems with pertinent positive or pertinent negative responses have been documented in the HPI. ROS Other: All systems not noted in ROS Statement are negative. Past Medical History Past Medical History: Asthma, Cancer, Chest Pain / Angina, Heart Failure, COPD, Deep Vein Thrombosis (DVT), GERD/Reflux, GI Bleed, Hyperlipidemia, Hypertension , Pulmonary Embolus (PE) Additional Past Medical History / Comment(s): HX MULT KIDNEY STONES ZENAIDA. BACK, NECK PAIN. HIATAL HERNIA. HX OF SKIN CA. POOR BALANCE, RECENT FALLS.POOR APPETITE PAST WEEK, C-DIFF >5 YEARS AGO History of Any Multi-Drug Resistant Organisms: None Reported Past Surgical History: Back Surgery, Cholecystectomy, Hysterectomy, Joint Replacement, Tonsillectomy Additional Past Surgical History / Comment(s): EYE LIFTS ZENAIDA. PARTIAL HYSTERECTOMY, NECK SURGERY X2, WRIST SURGERY, ZENAIDA KNEE REPLACEMENTS. Past Anesthesia/Blood Transfusion Reactions: Previous Problems w/ Anesthesia Additional Past Anesthesia/Blood Transfusion Reaction / Comment(s): WOKE UP WITH SEVERE HEADACHE. Past Psychological History: Anxiety, Depression Additional Psychological History / Comment(s): LIVES AT HOME WITH HER SPOUSE, HAS TOTAL 5 STEPS INTO HOME, GETS PT AND NURSE AIDE. HAS WALKER/W/C IF NEEDED. FAMILY STATED IF YOU HAVE ANY QUESTIONS ON PT CALL EITHER DAUGHTER WILDER AT [phone] OR JOSR-SON AT [phone]- BECAUSE D/T HUSBANDS MEDICAL ISSUES HE' S NOT RELIABLE SOURCE OF INFO. Smoking Status: Current every day smoker Past Alcohol Use History: Rare Additional Past Alcohol Use History / Comment(s): STARTED SMOKING 1965 CURRENTLY DOWN TO 3-4 CIG PER DAY Past Drug Use History: None Reported - Past Family History Mother Family Medical History: Cancer Additional Family Medical History / Comment(s): mother from kidney cancer Brother(s) Family Medical History: Cancer Additional Family Medical History / Comment(s): brother of kidney cancer General Exam - General Exam Comments Initial Comments: PHYSICAL EXAM: General Impression: Alert and oriented x3, not in acute distress, right upper extremity in a sling HEENT: Normocephalic atraumatic, extra-ocular movements intact, pupils equal and reactive to light bilaterally, mucous membranes moist. Cardiovascular: Heart regular rate and rhythm, S1&S2 audible, no murmurs, rubs or gallops Chest: Mild diffuse bilateral lung wheezing Abdomen: Bowel sounds present, abdomen soft, non-tender, non-distended, no organomegaly Musculoskeletal: Pulses present and equal in all extremities, no peripheral edema Motor: Power 5/5 bilaterally, no focal deficits noted Neurological: CN II-XII grossly intact, no focal motor or sensory deficits noted Skin: Intact with no visualized rashes Psych: Normal affect and mood Right upper extremity: Intact neurovascularly. No motor sensory deficits noted. Right radial pulse intact Course Vital Signs 12/14/17 12/14/17 12/14/17 13:56 15:20 15:32 Temperature 98.1 F Pulse Rate 78 66 68 Respiratory 18 Rate Blood Pressure 122/62 O2 Sat by Pulse 92 L Oximetry 12/14/17 15:53 Temperature Pulse Rate 69 Respiratory 18 Rate Blood Pressure 124/66 O2 Sat by Pulse 92 L Oximetry Medical Decision Making - Medical Decision Making ED course: 77-year-old female presents with right upper extremity pain status post fall from bed. Laboratory evaluation obtained. CBC unremarkable. Metabolic panel is unremarkable. Wrist x-ray shows no acute processes, shoulder x-ray shows no acute processes. CT scan of the C-spine and head shows no acute processes however there is incidental finding of a 4 cm right thoracic aortic aneurysm. Patient have any chest pain symptoms at this time. Patient not having any neuro deficits. This point there is no clinical suspicion of aortic dissection. Patient reevaluated and hemodynamically stable. X-ray of the elbow shows brown soft tissue swelling of the posterior lateral right elbow small joint effusion suspicious for occult fracture. No cold fracture seen at this time. There is anterior fat pad. Clinical presentation suspicious for elbow fracture. Patient placed in a sling. She has tramadol at home that she can take for her pain. She does have an orthopedic doctor that did her hips and her knees that she wants to follow-up with. Patient be discharge. Told to return to emergency Department with any worsening symptoms. - Lab Data Result diagrams: 12/14/17 14:23 12/14/17 14:23 Lab Results 12/14/17 12/14/17 Range/Units 14:23 14:23 WBC 7.8 (3.8-10.6) k/uL RBC 4.43 (3.80-5.40) m/uL Hgb 13.4 (11.4-16.0) gm/dL Hct 41.1 (34.0-46.0) % MCV 92.7 (80.0-100.0) fL MCH 30.3 (25.0-35.0) pg MCHC 32.7 (31.0-37.0) g/dL RDW 14.9 (11.5-15.5) % Plt Count 219 (150-450) k/uL Neutrophils % 74 % Lymphocytes % 15 % Monocytes % 6 % Eosinophils % 3 % Basophils % 0 % Neutrophils # 5.8 (1.3-7.7) k/uL Lymphocytes # 1.2 (1.0-4.8) k/uL Monocytes # 0.5 (0-1.0) k/uL Eosinophils # 0.2 (0-0.7) k/uL Basophils # 0.0 (0-0.2) k/uL Sodium 141 (137-145) mmol/L Potassium 4.3 (3.5-5.1) mmol/L Chloride 110 H (98-107) mmol/L Carbon Dioxide 26 (22-30) mmol/L Anion Gap 5 mmol/L BUN 13 (7-17) mg/dL Creatinine 0.92 (0.52-1.04) mg/dL Est GFR (CKD-EPI)AfAm 71 (>60 ml/min/1.73 sqM) Est GFR (CKD-EPI)NonAf 61 (>60 ml/min/1.73 sqM) Glucose 114 H (74-99) mg/dL Calcium 8.9 (8.4-10.2) mg/dL Magnesium 1.9 (1.6-2.3) mg/dL Total Bilirubin 0.4 (0.2-1.3) mg/dL AST 19 (14-36) U/L ALT 24 (9-52) U/L Alkaline Phosphatase 79 (38-126) U/L Total Protein 5.6 L (6.3-8.2) g/dL Albumin 3.1 L (3.5-5.0) g/dL Disposition Clinical Impression: Elbow dislocation, Fall Disposition: HOME SELF-CARE Instructions: Fall Prevention for Older Adults (ED) Additional Instructions: follow up with orthopedic doctor in 1-2 days Is patient prescribed a controlled substance at d/c from ED?: No Referrals: Ramón Briggs MD [Primary Care Provider] - 1-2 days Time of Disposition: 15:58
[2017-12-14] MEDS ORDERED: DEXAMETHASONE 4 MG TAB PO STA (14:35)
[2017-12-14] MEDS ORDERED: IPRATROPIUM-ALBUTEROL 3 ML NEB INHALATION STA (14:35)
[2017-12-14 14:44] LABS: Basophils % (A) 0 %; Eosinophils # (A) 0.2 k/uL (0-0.7); Eosinophils % (A) 3 %; HCT 41.1 % (34.0-46.0); HGB 13.4 gm/dL (11.4-16.0); Lymphocytes # (A) 1.2 k/uL (1.0-4.8); Lymphocytes % (A) 15 %; MCH 30.3 pg (25.0-35.0); MCHC 32.7 g/dL (31.0-37.0); MCV 92.7 fL (80.0-100.0); Mean Platelet Volume 7.4; Monocytes # (A) 0.5 k/uL (0-1.0); Monocytes % (A) 6 %; Neutrophils # (A) 5.8 k/uL (1.3-7.7); Neutrophils % (A) 74 %; Platelet Count 219 k/uL (150-450); RBC 4.43 m/uL (3.80-5.40); RDW 14.9 % (11.5-15.5); WBC 7.8 k/uL (3.8-10.6)
[2017-12-14 14:50] LABS: Albumin 3.1 g/dL (3.5-5.0); Calcium 8.9 mg/dL (8.4-10.2); Magnesium 1.9 mg/dL (1.6-2.3); Potassium 4.3 mmol/L (3.5-5.1); Total Bilirubin 0.4 mg/dL (0.2-1.3); Total Protein 5.6 g/dL (6.3-8.2)
--- NOTE | 2017-12-14 15:14 | CT ---
EXAMINATION TYPE: CT brain william kramer DATE OF EXAM: 12/14/2017 COMPARISON: Prior head CT 06/02/2016 HISTORY: Fall today with Right frontal injury CT DLP: 2320 mGycm Automated exposure control for dose reduction was used. TECHNIQUE: CT scan of the head and cervical spine are performed without contrast. FINDINGS: There is no acute intracranial hemorrhage, mass effect, or midline shift identified. Whit e matter demyelination changes again noted possibly due to chronic small vessel ischemia, there are c erebrovascular calcifications present The ventricles and sulci are within normal limits in size. The globes are intact and the visualized sinuses are clear. Cervical spine is visualized in its entirety from C1 through upper thoracic levels and demonstrates s atisfactory alignment without evidence of acute fracture or dislocation. Patient is status post anter ior cervical fusion and discectomy at C5-6, prior fusion C6-7. Spondylosis is greatest at C3-4 with a ssociated loss of disc height. Prevertebral soft tissue appears within normal limits. The C1-C2 art iculation is unremarkable. There is multilevel facet arthropathy and foraminal encroachment. Thoracic aortic aneurysm noted incidentally. Transverse aorta measures approximately 4 cm in its visu alized portion. IMPRESSION: 1. There is no acute fracture or dislocation evident in the cervical spine. Postop changes. Degenerat allie disc disease and facet arthropathy. 2. No acute intracranial hemorrhage, mass effect, or midline shift is seen. 3. Thoracic aortic aneurysm, follow-up recommended.
--- NOTE | 2017-12-14 15:35 | XR ---
EXAMINATION TYPE: XR elbow complete RT DATE OF EXAM: 12/14/2017 CLINICAL HISTORY: Right-sided arm pain after fall TECHNIQUE: Frontal, lateral and oblique images of the right elbow are obtained. COMPARISON: None FINDINGS: There is diffuse soft tissue swelling seen over the dorsal lateral right elbow and mildly e levated anterior fat-pad. Although no acute fracture is identified there is suspicion for occult frac ture given these findings. Hyperdense lesion within the distal diaphysis of the medullary canal of th e right humerus could represent a benign bone island. IMPRESSION: Pronounced soft tissue swelling of the posterior lateral right elbow and small joint effu regine suspicious for occult fracture.
--- NOTE | 2017-12-14 15:36 | XR ---
EXAMINATION TYPE: XR shoulder complete RT DATE OF EXAM: 12/14/2017 CLINICAL HISTORY: Right shoulder pain after fall TECHNIQUE: Three views of the right shoulder are obtained. COMPARISON: None. FINDINGS: There is no acute fracture/dislocation evident in the right shoulder. The acromioclavicul ar joint appears within normal limits. The visualized ribs are intact and unremarkable. Calcified so ft tissue densities are seen within the right axilla. Mild right shoulder arthropathy is noted as jaspreet nt space narrowing and subchondral cystic change. There is osseous demineralization. IMPRESSION: There is no acute fracture or dislocation in the right shoulder.
--- NOTE | 2017-12-14 15:38 | XR ---
EXAMINATION TYPE: XR wrist complete RT DATE OF EXAM: 12/14/2017 CLINICAL HISTORY: Right arm pain after fall TECHNIQUE: 3 views of the right wrist are obtained. COMPARISON: None. FINDINGS: There appears to be surgical absence of the trapezium. Sclerosis of the triquetrum is noted . Degenerative change of the wrist is seen as few subchondral cysts, opposing surface sclerosis and j oint space narrowing. No acute fracture or dislocation is seen of the right wrist.. IMPRESSION: There is no acute fracture or dislocation seen in the right wrist
[2017-12-14 15:54] VITALS: BP 124/66; PULSE 69
[2017-12-14 16:19] VITALS: TEMP 98.2
== END 2017-12-14 16:04 | disposition home or self-care (01) ==
LOC: EC 13:43
DX: S53.104A Unspecified dislocation of right ulnohumeral joint, initial encounter (principal); I71.2 Thoracic aortic aneurysm, without rupture; J44.9 Chronic obstructive pulmonary disease, unspecified; I11.0 Hypertensive heart disease with heart failure; I50.9 Heart failure, unspecified; Z86.718 Personal history of other venous thrombosis and embolism; Z86.711 Personal history of pulmonary embolism; Z85.828 Personal history of other malignant neoplasm of skin; Z96.653 Presence of artificial knee joint, bilateral; F17.200 Nicotine dependence, unspecified, uncomplicated; Z79.01 Long term (current) use of anticoagulants; Z79.899 Other long term (current) drug therapy; Z91.048 Other nonmedicinal substance allergy status; Z88.0 Allergy status to penicillin; Z88.8 Allergy status to other drugs, medicaments and biological substances; Z88.5 Allergy status to narcotic agent; W06.XXXA Fall from bed, initial encounter; Y92.009 Unspecified place in unspecified non-institutional (private) residence as the place of occurrence of the external cause
CPT/HCPCS: 36415; 94640; 93005; 80053; 83735; 85025; 73030; 73080; 73110; 72125; 70450; 99284; J8540

== ENCOUNTER 2018-08-03 14:47 | Inpatient (IN) | payer MEDICARE, BC ==
[2018-08-03] MEDS ORDERED: SODIUM CHLORIDE 0.9% 1,000 ML IV SCH (17:00)
[2018-08-03 17:33] LABS: Basophils % (A) 0 %; Eosinophils # (A) 0.2 k/uL (0-0.7); Eosinophils % (A) 3 %; HGB 14.8 gm/dL (11.4-16.0); Lymphocytes # (A) 1.5 k/uL (1.0-4.8); Lymphocytes % (A) 25 %; MCH 30.4 pg (25.0-35.0); MCHC 32.2 g/dL (31.0-37.0); MCV 94.6 fL (80.0-100.0); Mean Platelet Volume 8.2; Monocytes # (A) 0.4 k/uL (0-1.0); Monocytes % (A) 6 %; Neutrophils # (A) 3.7 k/uL (1.3-7.7); Neutrophils % (A) 64 %; Platelet Count 211 k/uL (150-450); RBC 4.87 m/uL (3.80-5.40); RDW 15.5 % (11.5-15.5); WBC 5.9 k/uL (3.8-10.6)
[2018-08-03 17:46] LABS: Albumin 3.4 g/dL (3.5-5.0); Calcium 9.4 mg/dL (8.4-10.2); Total Bilirubin 0.4 mg/dL (0.2-1.3); Total Protein 5.6 g/dL (6.3-8.2)
[2018-08-03] MEDS ORDERED: LEVOFLOXACIN 500MG-D5W PMX 500 MG in DEXTROSE/WATER 1 100ML.BAG IVPB SCH (18:00)
[2018-08-03] MEDS ORDERED: DOCUSATE 100 MG CAP PO PRN ×2 (19:59→21:31)
[2018-08-03] MEDS ORDERED: ALPRAZolam 0.5 MG TAB PO PRN (19:59)
[2018-08-03] MEDS ORDERED: ARTIFICIAL TEARS-HYPROMELLOSE DROPS 15 ML BTL BOTH EYES PRN ×2 (19:59→21:31)
[2018-08-03] MEDS ORDERED: traMADol 50 MG TAB PO PRN (19:59)
[2018-08-03] MEDS ORDERED: SENNOSIDES 8.6 MG TAB PO PRN ×2 (19:59→21:31)
[2018-08-03] MEDS ORDERED: BUDESONIDE 0.5 MG/2 ML NEBU INHALATION SCH (21:00)
[2018-08-03] MEDS ORDERED: RIVAROXABAN 15 MG TAB PO SCH (21:00)
[2018-08-03] MEDS ORDERED: IPRATROPIUM-ALBUTEROL 3 ML NEB INHALATION SCH (21:00)
[2018-08-03] MEDS: CHOLECALCIFEROL 1,000 UNIT TAB PO SCH (21:45)
[2018-08-03] MEDS: SODIUM CHLORIDE 0.9% 1,000 ML IV SCH (21:45)
[2018-08-03] MEDS: lamoTRIgine 25 MG TAB PO SCH (21:45)
[2018-08-03] MEDS: METOPROLOL TARTRATE 12.5 MG TAB PO SCH (21:45)
[2018-08-03] MEDS: ASPIRIN 81 MG PO SCH (21:45)
[2018-08-03] MEDS: BUDESONIDE 0.5 MG/2 ML NEBU INHALATION SCH (21:45)
[2018-08-03] MEDS: LORATADINE 10 MG TAB PO SCH (21:46)
[2018-08-03] MEDS: RIVAROXABAN 15 MG TAB PO SCH (21:46)
[2018-08-03] MEDS: PRIMIDONE 50 MG TAB PO SCH (21:46)
[2018-08-03] MEDS: PANTOPRAZOLE 40 MG TABLET PO SCH (21:46)
[2018-08-04] MEDS ORDERED: PANTOPRAZOLE 40 MG TABLET PO SCH (07:30)
[2018-08-04] MEDS: IPRATROPIUM-ALBUTEROL 3 ML NEB INHALATION SCH ×2 (08:05→20:21)
[2018-08-04] MEDS: BUDESONIDE 0.5 MG/2 ML NEBU INHALATION SCH ×2 (08:05→20:21)
[2018-08-04] MEDS: PANTOPRAZOLE 40 MG TABLET PO SCH (08:26)
[2018-08-04] MEDS: LORATADINE 10 MG TAB PO SCH (08:26)
[2018-08-04] MEDS: PRIMIDONE 50 MG TAB PO SCH (08:26)
[2018-08-04] MEDS: lamoTRIgine 25 MG TAB PO SCH (08:26)
[2018-08-04] MEDS: RIVAROXABAN 15 MG TAB PO SCH ×2 (08:26→20:19)
[2018-08-04] MEDS: CHOLECALCIFEROL 1,000 UNIT TAB PO SCH (08:26)
[2018-08-04] MEDS: ASPIRIN 81 MG PO SCH (08:27)
[2018-08-04] MEDS: METOPROLOL TARTRATE 12.5 MG TAB PO SCH (08:27)
[2018-08-04] MEDS: ALPRAZolam 0.5 MG TAB PO PRN (08:50)
[2018-08-04] MEDS: traMADol 50 MG TAB PO PRN (08:50)
[2018-08-04] MEDS ORDERED: METOPROLOL TARTRATE 12.5 MG TAB PO SCH (09:00)
[2018-08-04] MEDS ORDERED: PRIMIDONE 50 MG TAB PO SCH (09:00)
[2018-08-04] MEDS ORDERED: LORATADINE 10 MG TAB PO SCH (09:00)
[2018-08-04] MEDS ORDERED: CHOLECALCIFEROL 1,000 UNIT TAB PO SCH (09:00)
[2018-08-04] MEDS ORDERED: ASPIRIN 81 MG PO SCH (09:00)
[2018-08-04] MEDS ORDERED: lamoTRIgine 25 MG TAB PO SCH (09:00)
[2018-08-04] MEDS: SODIUM CHLORIDE 0.9% 1,000 ML IV SCH (13:29)
--- NOTE | 2018-08-04 17:42 | HP ---
HISTORY AND PHYSICAL Dr. Dietz is covering for Dr. Ramón Briggs. DATE OF SERVICE: 08/04/2018 Patient is a 78-year-old female who was sent in as a direct admit by her primary care physician for suspected urosepsis. Patient is a very poor historian. When asked why she was admitted to the hospital, she said it was for what she thought was right knee pain and back pain. I did discuss with Nursing. Reason for admission and Nursing explained that her son had shared with them that the patient at home has shown some suicidal ideation, which was concerning to the family. Subsequently patient was admitted to the hospital. Patient is denying any sort of suicidal ideation at this time. PAST MEDICAL HISTORY: Past medical history is significant for: 1. High cholesterol. 2. Hypertension. 3. CHF. 4. COPD. 5. Kidney stones. 6. Anxiety. 7. Depression. 8. Atrial fibrillation. 9. Spinal stenosis. 10.Skin cancer, untreated. 11.PE and DVT. PAST SURGICAL HISTORY: Past surgical history is significant for: 1. Cholecystectomy. 2. Bilateral knee replacements. 3. Left total hip. 4. Partial hysterectomy. 5. Tonsillectomy. 6. Back surgery for the spinal stenosis. 7. Some surgery. ALLERGIES: ALLERGIES INCLUDE: 1. ADHESIVE. 2. PENICILLINS. 3. STATINS. 4. CODEINE. MEDICATIONS: Medications patient is on at home include: 1. Combivent MDI one puff b.i.d. 2. Pulmicort 0.5 mg via nebulizer b.i.d. 3. Lamictal 100 mg p.o. daily. 4. Bactrim 1 tablet p.o. daily. 5. Xarelto 15 mg p.o. b.i.d. 6. Primidone 50 mg p.o. t.i.d. 7. Omeprazole 20 mg p.o. b.i.d. 8. Lopressor 12.5 mg p.o. b.i.d. 9. Lasix 20 mg p.o. q.48 hours. 10.Lexapro 20 mg p.o. daily. 11.Xanax 0.5 mg p.o. t.i.d. p.r.n. 12.Colace 100 mg p.o. daily p.r.n. 13.Senna 8.6 mg daily p.r.n. 14.Claritin 10 mg p.o. daily. 15.Vitamin D3 1000 units p.o. daily. 16.Aspirin 81 mg p.o. daily. 17.Refresh Tears to both eyes t.i.d. p.r.n. FAMILY HISTORY: Patient states her mother at the age of 86 of old age and father of cirrhosis at the age of 43. SOCIAL HISTORY: Patient states that she quit smoking in January after smoking over 50 years over a pack per day. Denies alcohol use. Denies any illicit drug use. 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 REVIEW OF SYSTEMS: GENERAL: Negative for any fever or chills. HEENT: Positive for headaches. Patient also does complain of some vision changes. Denies difficulty hearing. Denies any sore throat or difficulty swallowing. RESPIRATORY: Positive for shortness of breath at times, more so exertional. CARDIOVASCULAR: Negative for chest pain or palpitations. : Negative for dysuria or hematuria. MUSCULOSKELETAL: Positive for knee and hip and back pain. PSYCHIATRIC: Positive for anxiety and depression. NEUROLOGIC: Negative for any history of seizures. Patient is questioning whether or not she may have a history of CVA. ENDOCRINE: Negative for diabetes mellitus or thyroid disease. PHYSICAL EXAMINATION: VITAL SIGNS: Temperature is 97.6, heart rate 73, respiratory rate 17, blood pressure 97/67. Oxygen saturation is 93% on room air. HEENT: Head is normocephalic, atraumatic. Pupils equal, round, reactive to light. Ears and nose: No discharge is noted. Mouth with moist mucous membranes. Mallampati is class IV. NECK: Supple. Trachea is midline. LUNGS: Decreased breath sounds. No clear rales or wheezes. HEART: S1 and S2 are heard. Not tachycardic. ABDOMEN: Soft. Bowel sounds are positive. EXTREMITIES: No edema. NEUROLOGIC: Patient awake and alert. LABS: White count is 5.9, hemoglobin 14.8, hematocrit 46.0 with 211,000 platelets. Sodium is 141, potassium 4.0, chloride 111. CO2 is 24. Anion gap is 6. BUN is 14, creatinine 0.98. Glucose is 89, calcium 9.4, total bilirubin 0.4. AST is 13. ALT is 11. Alkaline phosphatase is 92. Total protein is 5.6, albumin 3.4. Vitamin B12 is 228. TSH is 0.067. ASSESSMENT: 1. Recent suicidal ideation; patient denying at this time. 2. Abnormal low TSH; however, this is not new. It appeared on a previous admission. Will defer to patient's primary. PLAN: Consult Psychiatry. Resume home medications. GI and DVT prophylaxis with Protonix. Patient is on Xarelto. Again, dictating for Dr. Joanna Dietz, covering for Dr. Ramón Briggs. MMODL / IJN: [id number] /
[2018-08-04] MEDS ORDERED: LEVOFLOXACIN 500MG-D5W PMX 500 MG in DEXTROSE/WATER 1 100ML.BAG IVPB SCH (18:00)
[2018-08-05] MEDS: SODIUM CHLORIDE 0.9% 1,000 ML IV SCH ×2 (05:39→07:22)
[2018-08-05] MEDS: CHOLECALCIFEROL 1,000 UNIT TAB PO SCH (07:20)
[2018-08-05] MEDS: METOPROLOL TARTRATE 12.5 MG TAB PO SCH (07:20)
[2018-08-05] MEDS: ASPIRIN 81 MG PO SCH (07:21)
[2018-08-05] MEDS: lamoTRIgine 25 MG TAB PO SCH (07:21)
[2018-08-05] MEDS: LORATADINE 10 MG TAB PO SCH (07:21)
[2018-08-05] MEDS: PANTOPRAZOLE 40 MG TABLET PO SCH (07:21)
[2018-08-05] MEDS: PRIMIDONE 50 MG TAB PO SCH (07:21)
[2018-08-05] MEDS: RIVAROXABAN 15 MG TAB PO SCH ×2 (07:21→20:01)
[2018-08-05] MEDS: ALPRAZolam 0.5 MG TAB PO PRN ×2 (07:26→20:01)
[2018-08-05] MEDS: traMADol 50 MG TAB PO PRN (07:26)
[2018-08-05] MEDS: BUDESONIDE 0.5 MG/2 ML NEBU INHALATION SCH ×2 (09:01→20:22)
[2018-08-05] MEDS: IPRATROPIUM-ALBUTEROL 3 ML NEB INHALATION SCH ×2 (11:45→20:22)
[2018-08-05] MEDS: buPROPion XL 150 MG TAB.ER.24H PO SCH (12:07)
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
[2018-08-05] MEDS: LEVOFLOXACIN 500 MG TAB PO SCH (15:28)
--- NOTE | 2018-08-05 16:10 | PN ---
PROGRESS NOTE SUBJECTIVE: 78-year-old white female complaining of severe tremors with exertion, depression due to family stresses in her life and awaiting psychiatry consult. Neurology consult. Remains treating for urosepsis at this point. Vital signs are stable. Cardiovascular: S1, S2. Lungs are clear. GI soft. Hematology negative Homans. Psych: Fair mood and affect. ASSESSMENT: 1. Urosepsis. 2. Generalized weakness. Continue current treatment. Follow up next 24 to 48 hours. Neurology consult due to increased tremor with exertion and psych consult for severe depression. MMODL / IJN: [id number] /
[2018-08-06] MEDS: SODIUM CHLORIDE 0.9% 1,000 ML IV SCH ×2 (05:35→07:17)
[2018-08-06] MEDS: PRIMIDONE 50 MG TAB PO SCH (07:16)
[2018-08-06] MEDS: lamoTRIgine 25 MG TAB PO SCH (07:16)
[2018-08-06] MEDS: PANTOPRAZOLE 40 MG TABLET PO SCH (07:16)
[2018-08-06] MEDS: buPROPion XL 150 MG TAB.ER.24H PO SCH (07:16)
[2018-08-06] MEDS: RIVAROXABAN 15 MG TAB PO SCH ×2 (07:16→20:17)
[2018-08-06] MEDS: ASPIRIN 81 MG PO SCH (07:16)
[2018-08-06] MEDS: LORATADINE 10 MG TAB PO SCH (07:16)
[2018-08-06] MEDS: METOPROLOL TARTRATE 12.5 MG TAB PO SCH (07:16)
[2018-08-06] MEDS: CHOLECALCIFEROL 1,000 UNIT TAB PO SCH (07:17)
[2018-08-06] MEDS: BUDESONIDE 0.5 MG/2 ML NEBU INHALATION SCH ×2 (08:16→19:43)
[2018-08-06] MEDS: IPRATROPIUM-ALBUTEROL 3 ML NEB INHALATION SCH ×2 (08:16→19:43)
[2018-08-06] MEDS: LEVOFLOXACIN 500 MG TAB PO SCH (16:30)
[2018-08-06] MEDS: ALPRAZolam 0.5 MG TAB PO PRN (21:15)
--- NOTE | 2018-08-06 22:07 | P.CNNES ---
History of Present Illness Consult date: 08/06/18 Reason for Consult: Tremors with exertion History of Present Illness: Patient is a 78-year-old female who has developed progressive ataxia of upper and lower extremities in the past 6 months. Patient states she had 2 neck surgeries but they were long time ago 10 and 15 years ago. Patient denies any family history of ataxia. Patient states that when she tries to use a walker for walking, the arm starts shaking, it progressively gets worse until she falls. She has not been able to walk. Patient's blood test shows vitamin B12 228 on 08/03/2018. TSH is decreased 0.067, free T4 normal 1.32. Liver functions are normal. Electrolytes normal. Renal functions normal. CBC is normal. Patient's previous MRI of the cervical spine from 07/01/2016 showed foraminal encroachment significant C3 4 on the right, there is multilevel spinal stenosis. There is moderate spinal stenosis at C3 4 mild spinal stenosis at C4 5. Patient has smoked 2 packs per day from age 30 to age 77. She quit tobacco in January 2018. Patient used to drink heavily from age 30 to age 40 then she quit. Review of Systems As above in detail Past Medical History Past Medical History: Asthma, Cancer, Chest Pain / Angina, Heart Failure, COPD, Deep Vein Thrombosis (DVT), GERD/Reflux, Hyperlipidemia, Hypertension, Pulmonary Embolus (PE), Vascular Disorder Additional Past Medical History / Comment(s): Bronchitis, multiple PEs, DVT L leg, falls, balance issues, wheelchair bound, bilateral hand tremors, hiatal hernia, diverticular disease, chronic cervical/back pain, spinal stenosis, multiple kidney stones, skin cancer with removal. History of Any Multi-Drug Resistant Organisms: None Reported Date of last positivie culture/infection: 2007 Past Surgical History: Back Surgery, Cholecystectomy, Hysterectomy, Joint Replacement, Orthopedic Surgery, Tonsillectomy, Tubal Ligation Additional Past Surgical History / Comment(s): Cervical surgery x2 has plate/screws, lumbar back surgery, total L/R knee, L knee arthroscopy, L thumb surgery, D&C, bladder suspension, bilateral cataract removals, bilateral eye RK surgery, bilateral blepharoplasty, r retrograde pyelogram/R ureteroscopy with laser lithotripsy, hemorrhoidectomy x2. Past Anesthesia/Blood Transfusion Reactions: Previous Problems w/ Anesthesia Additional Past Anesthesia/Blood Transfusion Reaction / Comment(s): WOKE UP WITH SEVERE HEADACHE. Past Psychological History: Anxiety, Depression Additional Psychological History / Comment(s): LIVES AT HOME WITH HER SPOUSE AND THEIR SON LIVES WITH THEM. PT'S HAS MEMORY ISSUES AND SON REQUESTS THAT INFORMATION/QUESTIONS BE DIRECTED TO PT'S KAYLEEN UMANZOR. PT GETS AROUND IN WHEELCHAIR. SON CARES FOR PT. Smoking Status: Former smoker Past Alcohol Use History: Rare Additional Past Alcohol Use History / Comment(s): STARTED SMOKING 1965 AND QUIT A FEW MONTHS AGO. Past Drug Use History: None Reported - Past Family History Mother Family Medical History: Cancer Additional Family Medical History / Comment(s): mother from kidney cancer Brother(s) Family Medical History: Cancer Additional Family Medical History / Comment(s): brother of kidney cancer Medications and Allergies Home Medications Medication Instructions Recorded Confirmed Type ALPRAZolam [Xanax] 0.5 mg PO TID PRN 06/02/16 08/04/18 History Carboxymethylcellulose Sodium 1 drop BOTH EYES TID PRN 06/02/16 08/03/18 History [Refresh Tears] Rivaroxaban [Xarelto] 15 mg PO BID 06/02/16 08/04/18 History Metoprolol Tartrate [Lopressor] 12.5 mg PO BID 12/14/17 08/04/18 History Primidone [Mysoline] 50 mg PO TID 12/14/17 08/04/18 History Aspirin 81 mg PO DAILY 08/03/18 08/03/18 History Budesonide [Pulmicort] 0.5 mg INHALATION RT-BID 08/03/18 08/04/18 History Cholecalciferol [Vitamin D3 (25 1,000 unit PO DAILY 08/03/18 08/03/18 History Mcg = 1000 Iu)] Docusate [Colace] 100 mg PO DAILY PRN 08/03/18 08/03/18 History Ipratropium/Albuterol Sulfate 1 puff INHALATION RT-BID 08/03/18 08/04/18 History [Combivent Respimat Inhaler] Loratadine [Claritin] 10 mg PO DAILY 08/03/18 08/03/18 History Sennosides [Senna] 8.6 mg PO DAILY PRN 08/03/18 08/03/18 History Escitalopram Oxalate [Lexapro] 20 mg PO DAILY 08/04/18 08/04/18 History Furosemide [Lasix] 20 mg PO Q48H 08/04/18 08/04/18 History Omeprazole 20 mg PO BID 08/04/18 08/04/18 History Sulfamethoxazole/Trimethoprim 1 tab PO DAILY 08/04/18 08/04/18 History [Bactrim DS 800-160 mg] lamoTRIgine [LaMICtal] 100 mg PO DAILY 08/04/18 08/04/18 History Allergies Allergy/AdvReac Type Severity Reaction Status Date / Time adhesive Allergy Unknown Red , Verified 08/04/18 08:59 Irritated skin Penicillins Allergy Unknown Unknown Verified 08/04/18 08:59 Childhood Gfpzfkv-Qla-Aci Reductase Allergy Unknown Verified 08/04/18 08:59 Inhibitor codeine AdvReac Intermediate Nausea & Verified 08/04/18 08:59 Vomiting Physical Examination - Vital Signs Vital Signs: Vital Signs Temp Pulse Pulse Resp BP Pulse Ox 08/06/18 20:28 98.1 F 74 17 119/80 97 08/06/18 20:00 68 08/06/18 19:45 68 08/06/18 13:26 97.6 F 68 18 135/92 97 08/06/18 08:29 60 08/06/18 08:16 64 08/06/18 05:32 97.8 F 69 16 133/82 95 Intake and Output 08/06/18 08/06/18 08/06/18 06:59 14:59 22:59 Other: Voiding Method Bedpan Diaper Incontinent # Voids 0 2 Patient's mental status is normal. Speech is mildly dysarthric. No aphasia. Cranial nerves significant for mild nystagmus. Pupils are round and reacting. Visual vincent are full and face is symmetric and tongue protrudes the midline muscle strength is completely normal in the arms and legs distally and proxim ally. Reflexes are 2+ and plantars are downgoing. Patient has severe ataxia for bqfpqb-vl-brat and [id number]-ua-[id number] testing bilaterally. Tone and bulk of muscles normal. 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 Exact etiology uncertain. Hereditary cerebellar ataxia somewhat less likely because of age of onset of ataxia. 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 Patient denies alcoholism for last 30 years. Plan: * MRI of the brain to evaluate for mass lesion. * Ceruloplasmin, copper, * Paraneoplastic antibody panel * Neurology coverage not available from 08/07/2018 through 08/11/2018.
--- NOTE | 2018-08-06 23:57 | PN ---
PROGRESS NOTE SUBJECTIVE: A 78-year-old white female with urosepsis. Remains on IV antibiotics. Depression is being evaluated by Psychiatry. Neurology is going to see for chronic tremor and with increase movement. Cardiovascular S1-S2. Lungs transmitted upper air sounds. GI is distended. Obesity. Hematology: Negative Homans. ASSESSMENT: 1. Urosepsis. 2. Generalized tremor with exertion. 3. Dementia. 4. Hypertension. 5. Depression. Continue with current treatments. Await for psych and neuro recommendations. MMODL / IJN: [id number] /
[2018-08-07] MEDS: SODIUM CHLORIDE 0.9% 1,000 ML IV SCH ×2 (04:35→17:42)
[2018-08-07] MEDS: BUDESONIDE 0.5 MG/2 ML NEBU INHALATION SCH ×2 (07:20→20:30)
[2018-08-07] MEDS: PRIMIDONE 50 MG TAB PO SCH (07:49)
[2018-08-07] MEDS: PANTOPRAZOLE 40 MG TABLET PO SCH (07:49)
[2018-08-07] MEDS: RIVAROXABAN 15 MG TAB PO SCH ×2 (07:49→20:41)
[2018-08-07] MEDS: lamoTRIgine 25 MG TAB PO SCH (07:49)
[2018-08-07] MEDS: CHOLECALCIFEROL 1,000 UNIT TAB PO SCH (07:49)
[2018-08-07] MEDS: LORATADINE 10 MG TAB PO SCH (07:49)
[2018-08-07] MEDS: buPROPion XL 150 MG TAB.ER.24H PO SCH (07:49)
[2018-08-07] MEDS: METOPROLOL TARTRATE 12.5 MG TAB PO SCH (07:49)
[2018-08-07] MEDS: ASPIRIN 81 MG PO SCH (07:49)
[2018-08-07] MEDS ORDERED: CYANOCOBALAMIN 1,000 MCG/ML 1 ML VIAL IM SCH (09:00)
[2018-08-07] MEDS: IPRATROPIUM-ALBUTEROL 3 ML NEB INHALATION SCH ×2 (15:37→20:30)
--- NOTE | 2018-08-07 15:48 | P.PN ---
Subjective Progress Note Date: 08/07/18 this is a 78-year-old female admitted with UTI with sepsis, generalized tremors, dementia and multiple medical issues.complaints of right knee pain. evaluated by neurology, recommendations noted- Brain MRI ordered. 7. Objective - Vital Signs Vital signs: Vital Signs Temp 97.7 F 08/07/18 13:39 Pulse 74 08/07/18 13:39 Resp 16 08/07/18 13:39 BP 151/96 08/07/18 13:39 Pulse Ox 96 08/07/18 13:39 Intake & Output 08/06/18 08/07/18 08/07/18 18:59 06:59 18:59 Intake Total 540 Balance 540 Intake: Oral 540 Other: Voiding Method Bedpan Bedpan Diaper Diaper Incontinent Incontinent # Voids 2 2 4 - Exam PHYSICAL EXAM: VITAL SIGNS: [as above] GENERAL: sitting up in bed, no acute distress HEENT: Conjunctivae normal. eyes normal.positive mild nystagmus, oral mucosa moist NECK: No JVD. No thyroid enlargement. No LNs CARDIOVASCULAR: S1, S2 regular.. No murmur RESPIRATION: Breath sounds diminished in the bases. No rhonchi or crackles. No bronchial breathing. ABDOMEN: Soft, nontender . No guarding. no masses palpable.Bowel sounds heard. LEGS: No edema. no swelling PSYCHIATRY: Alert and oriented -3, mood and affect normal. NERVOUS SYSTEM: finger to nose and heel to rey ataxia, bilaterally, downgoing plantars, Moves all 4 limbs. Diffuse weakness No focal deficits. Strength and sensation grossly intact. Skin: no lesions, no rash Lymphatic system. No LN neck axilla or groin. - Labs CBC & Chem 7: 08/03/18 17:21 08/03/18 17:21 Labs: Microbiology - Last 24 Hours (Table) 08/05/18 18:00 Urine Culture - Final Urine,Clean Catch Assessment and Plan Assessment: -acute UTI with sepsis -Generalized tremors with exertion.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 R/O mass/lesion -Dementia, type unknown -Hypertension -Depression -obesity, BMI 31.3 -nicotine dependence, 2 packs per day times X 45 years. Quit January 2018 -History of ETOH abuse, quit 40 yrs ago Plan: Continue on current medication regime ,monitoring and symptomatic treatment. MRI pending. Evaluated by psychiatry with Wellbutrin initiated. Discharge planning in progress for tomorrow. Patient declining subacute rehab. Further recommendations to follow. The impression and plan of care has been dictated as directed. : I performed a history and examination of this patient, discussed the same with the dictator. I agree with the dictator's note ,documented as a scribe. Any additional findings or plans will be noted.
[2018-08-07] MEDS: LEVOFLOXACIN 500 MG TAB PO SCH (17:41)
--- NOTE | 2018-08-07 18:57 | MR ---
EXAMINATION TYPE: MR brain wo con DATE OF EXAM: 08/07/2018 COMPARISON: CT brain 12/14/2017 HISTORY: Cerebellar ataxia, rule out mass Standard multiplanar, multisequence MRI departmental protocol Multiplanar, multisequence images of the brain were acquired. Diffusion weighted imaging was performe d. FINDINGS: On the T2 images there is a septated 12 x 10 mm area of septated fluid collection in the me dial left cerebellar hemisphere. There is some mild surrounding hemosiderin. This is consistent with old hemorrhage. There is a poorly marginated increased signal in the superior aspect of the cerebellu m on the T2 and FLAIR images consistent with edema. There is no mass effect on the fourth ventricle. There is no midline shift. There is moderate patchy increased signal in the periventricular white mat ter with numerous foci that are coalescent up to 1 cm. Corpus callosum is intact. Sella turcica is intact. I see no definite ischemia of the brain stem. IMPRESSION: Cystic septated lesion left cerebellar hemisphere with some apparent surrounding old hemorrhage. I wo uld consider possibilities of old hemorrhagic infarct as well as cystic tumor. There is some mild jeannette rounding edema of the cerebellum in the superior aspect of both cerebellar hemispheres. Cerebral atrophy and extensive white matter changes probably due to chronic small vessel ischemia. Contrast MR scan would be helpful for further evaluation to help distinguish between tumor and infarc t.
--- NOTE | 2018-08-07 19:02 | XR ---
EXAMINATION TYPE: XR knee complete RT DATE OF EXAM: 08/07/2018 COMPARISON: NONE HISTORY: Knee pain TECHNIQUE: 3 views FINDINGS: There is right knee prosthesis. Components are in anatomic position. I see no fracture. The re is vascular calcification. IMPRESSION: Negative right knee exam.
[2018-08-07] MEDS: ALPRAZolam 0.5 MG TAB PO PRN (20:41)
[2018-08-08] MEDS: METOPROLOL TARTRATE 12.5 MG TAB PO SCH (07:37)
[2018-08-08] MEDS: CHOLECALCIFEROL 1,000 UNIT TAB PO SCH (07:37)
[2018-08-08] MEDS: CYANOCOBALAMIN 500 MCG TAB PO SCH (07:37)
[2018-08-08] MEDS: LORATADINE 10 MG TAB PO SCH (07:37)
[2018-08-08] MEDS: ASPIRIN 81 MG PO SCH (07:37)
[2018-08-08] MEDS: PRIMIDONE 50 MG TAB PO SCH (07:37)
[2018-08-08] MEDS: lamoTRIgine 25 MG TAB PO SCH (07:37)
[2018-08-08] MEDS: PANTOPRAZOLE 40 MG TABLET PO SCH (07:37)
[2018-08-08] MEDS: buPROPion XL 150 MG TAB.ER.24H PO SCH (07:37)
[2018-08-08] MEDS: RIVAROXABAN 15 MG TAB PO SCH ×2 (07:37→20:44)
[2018-08-08] MEDS: SODIUM CHLORIDE 0.9% 1,000 ML IV SCH (07:38)
[2018-08-08] MEDS: BUDESONIDE 0.5 MG/2 ML NEBU INHALATION SCH ×2 (07:46→20:25)
[2018-08-08] MEDS: IPRATROPIUM-ALBUTEROL 3 ML NEB INHALATION SCH ×2 (07:46→20:25)
[2018-08-08 09:46] LABS: Calcium 9.5 mg/dL (8.4-10.2)
[2018-08-08 09:58] LABS: Basophils % (A) 1 %; Eosinophils # (A) 0.2 k/uL (0-0.7); Eosinophils % (A) 4 %; HCT 44.2 % (34.0-46.0); HGB 14.4 gm/dL (11.4-16.0); Lymphocytes # (A) 1.6 k/uL (1.0-4.8); Lymphocytes % (A) 26 %; MCH 30.6 pg (25.0-35.0); MCHC 32.6 g/dL (31.0-37.0); MCV 93.8 fL (80.0-100.0); Mean Platelet Volume 7.8; Monocytes # (A) 0.4 k/uL (0-1.0); Monocytes % (A) 6 %; Neutrophils # (A) 3.8 k/uL (1.3-7.7); Neutrophils % (A) 62 %; Platelet Count 207 k/uL (150-450); RBC 4.71 m/uL (3.80-5.40); RDW 15.2 % (11.5-15.5); WBC 6.1 k/uL (3.8-10.6)
--- NOTE | 2018-08-08 14:10 | P.PN ---
Subjective Progress Note Date: 08/08/18 this is a 78-year-old female admitted with UTI with sepsis, generalized tremors, dementia and multiple medical issues.complaints of right knee pain. evaluated by neurology, recommendations noted- Brain MRI ordered. Complains of new right knee pain. X-ray ordered. Denies chest pain, palpitations or increased shortness of breath. Afebrile. 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 Afebrile, normal WBC. Objective - Vital Signs Vital signs: Vital Signs Temp 98.6 F 08/08/18 05:17 Pulse 70 08/08/18 08:02 Resp 18 08/08/18 05:17 BP 144/88 08/08/18 05:17 Pulse Ox 94 L 08/08/18 05:17 Intake & Output 08/07/18 08/08/18 08/08/18 18:59 06:59 18:59 Intake Total 1080 Balance 1080 Intake: Oral 1080 Other: Voiding Method Bedpan Bedpan Bedpan Diaper Diaper Diaper Incontinent Incontinent Incontinent # Voids 6 3 # Bowel Movements 1 - Exam PHYSICAL EXAM: VITAL SIGNS: [as above] GENERAL: sitting up in bed, no acute distress HEENT: Conjunctivae normal. eyes normal. oral mucosa moist NECK: No JVD. No thyroid enlargement. No LNs CARDIOVASCULAR: S1, S2 regular.. No murmur RESPIRATION: Breath sounds diminished in the bases. No rhonchi or crackles. No bronchial breathing. ABDOMEN: Soft, nontender . No guarding. no masses palpable.Bowel sounds heard. LEGS: No edema. no swelling PSYCHIATRY: Alert and oriented -3, mood and affect normal. NERVOUS SYSTEM: downgoing plantars, Moves all 4 limbs. Diffuse weakness No focal deficits. Strength and sensation grossly intact. Skin: no lesions, no rash Lymphatic system. No LN neck axilla or groin. 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 -Dementia, type unknown -Hypertension -Depression -obesity, BMI 31.3 -nicotine dependence, 2 packs per day times X 45 years. Quit January 2018 -History of ETOH abuse, quit 40 yrs ago Plan: Continue on current medication regime ,monitoring and symptomatic treatment. MR Brain with contrast ordered. Discharge planning in progress pending MR. Patient declining subacute rehab. Further recommendations to follow. The impression and plan of care has been dictated as directed. : I performed a history and examination of this patient, discussed the same with the dictator. I agree with the dictator's note ,documented as a scribe. Any additional findings or plans will be noted.
[2018-08-08 15:00] LABS: C-ANCA <1:20 Titer (<1:20); P-ANCA <1:20 Titer (<1:20)
[2018-08-08] MEDS: LEVOFLOXACIN 500 MG TAB PO SCH (17:40)
[2018-08-08] MEDS: ALPRAZolam 0.5 MG TAB PO PRN (19:02)
[2018-08-09] MEDS: SODIUM CHLORIDE 0.9% 1,000 ML IV SCH ×2 (02:15→06:35)
[2018-08-09] MEDS: ALPRAZolam 0.5 MG TAB PO PRN (02:30)
[2018-08-09 05:54] VITALS: BP 123/79; PULSE 75; RESP 16; TEMP 98.1
[2018-08-09] MEDS: lamoTRIgine 25 MG TAB PO SCH (07:32)
[2018-08-09] MEDS: PANTOPRAZOLE 40 MG TABLET PO SCH (07:32)
[2018-08-09] MEDS: CYANOCOBALAMIN 500 MCG TAB PO SCH (07:32)
[2018-08-09] MEDS: RIVAROXABAN 15 MG TAB PO SCH (07:32)
[2018-08-09] MEDS: METOPROLOL TARTRATE 12.5 MG TAB PO SCH (07:32)
[2018-08-09] MEDS: ASPIRIN 81 MG PO SCH (07:32)
[2018-08-09] MEDS: CHOLECALCIFEROL 1,000 UNIT TAB PO SCH (07:32)
[2018-08-09] MEDS: LORATADINE 10 MG TAB PO SCH (07:32)
[2018-08-09] MEDS: buPROPion XL 150 MG TAB.ER.24H PO SCH (07:33)
[2018-08-09] MEDS: PRIMIDONE 50 MG TAB PO SCH (07:33)
[2018-08-09] MEDS: IPRATROPIUM-ALBUTEROL 3 ML NEB INHALATION SCH (07:47)
[2018-08-09] MEDS: BUDESONIDE 0.5 MG/2 ML NEBU INHALATION SCH (07:47)
--- NOTE | 2018-08-09 08:19 | MR ---
EXAMINATION TYPE: MR brain w con DATE OF EXAM: 08/09/2018 COMPARISON: MRI brain from 2 days ago. MRI cervical spine 2017 and older studies back through 2011 HISTORY: recommended from MRI w/o contrast, tumor, infarct. Cerebellar ataxia TECHNIQUE: Multiplanar, multisequence images of the brain and brainstem is performed with IV contrast, utilizing 8.5 mL intravenous Gadavist . FINDINGS: Postcontrast images show some vague heterogeneous areas of mild enhancement involving the c entral cerebellar hemispheres bilaterally there are areas of edema surrounding cystic change with bianka e extension into the cerebellar peduncles. Areas of edema involving the cerebellum are present on 201 7 MRI in retrospect (sagittal image 4) felt new from older 2011 cervical spine MRI. 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 Advise neurosurgic al referral although lesion is fairly infiltrative in appearance on MRI. IMPRESSION: As above.
--- NOTE | 2018-08-09 10:15 | P.DS ---
Providers Date of admission: 08/03/18 15:18 Expected date of discharge: 08/09/18 Attending physician: Ramón Briggs Consults: 08/03/18 21:31 Consult Physician Routine Consulting Provider: Eddy Hopkins Consult Reason/Comments: depression Do you want consulting provider notified?: Yes Placement Type Exists?: Yes 08/05/18 15:06 Consult Physician Routine Consulting Provider: Devan Vogt Consult Reason/Comments: tremors with exertion Do you want consulting provider notified?: Yes Primary care physician: [facility] Course: -acute UTI with sepsis -Generalized tremors with exertion.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 -Dementia, type unknown -Hypertension -Depression -obesity, BMI 31.3 -nicotine dependence, 2 packs per day times X 45 years. Quit January 2018 -History of ETOH abuse, quit 40 yrs ago Hospital course:this is a 78-year-old female admitted with UTI with sepsis, generalized tremors, dementia and multiple medical issues.complaints of right knee pain. evaluated by neurology, recommendations noted- Brain MRI ordered. C omplains of new right knee pain. X-ray ordered. Denies chest pain, palpitations or increased shortness of breath. Afebrile. 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 Afebrile, normal WBC. MRI of brain with contrast reporting mild enhancement involving the central cerebellar hemispheres bilaterally with areas, surrounding cystic change with some extension into the cerebellar peduncles. Areas of edema involving the cerebellum present 2016 MRI felt new from older 2011 cervical spine MRI, findings favoring low-grade solid cystic neoplasm with some expansion at this level, lesion fairly infiltrative in appearance; neurosurgical referral advised. This week we do not have neurology services available and we do not have neurosurgery at the site. Patient is therefore being transferred to a tertiary center for further evaluation by neurosurgery regarding possible tumor. Discussed findings with patient. She Follows with Dr. Power ,[facility]. Patient has consented to transfer and has been accepted by Dr. Power. Patient is being transferred to [facility] in a stable condition with guarded prognosis. EXAM: GENERAL: Alert & Oriented X 3, no acute distress HEENT: Conjunctivae normal. eyes normal.positive mild nystagmus, oral mucosa moist NECK: No JVD. No thyroid enlargement. No LNs CARDIOVASCULAR: S1, S2 regular. No murmur RESPIRATION: Breath sounds diminished in the bases. No rhonchi or crackles. ABDOMEN: Soft, nontender . No guarding. no masses palpable.Bowel sounds heard. NERVOUS SYSTEM: finger to nose and heel to rey ataxia, bilaterally, downgoing plantars, Moves all 4 limbs. Diffuse weakness No focal deficits. The impression and plan of care has been dictated as directed. : I performed a history and examination of this patient, discussed the same with the dictator. I agree with the dictator's note ,documented as a scribe. Any additional findings or plans will be noted. Time taken: 35 minutes Patient Condition at Discharge: Stable Plan - Discharge Summary Discharge Rx Participant: No New Discharge Prescriptions: No Action ALPRAZolam [Xanax] 0.5 mg PO TID PRN PRN Reason: Anxiety Carboxymethylcellulose Sodium [Refresh Tears] 1 drop BOTH EYES TID PRN PRN Reason: Eye Irritation Rivaroxaban [Xarelto] 15 mg PO BID Primidone [Mysoline] 50 mg PO TID Metoprolol Tartrate [Lopressor] 12.5 mg PO BID Docusate [Colace] 100 mg PO DAILY PRN PRN Reason: Constipation Sennosides [Senna] 8.6 mg PO DAILY PRN PRN Reason: Constipation Budesonide [Pulmicort] 0.5 mg INHALATION RT-BID Ipratropium/Albuterol Sulfate [Combivent Respimat Inhaler] 1 puff INHALATION RT-BID Loratadine [Claritin] 10 mg PO DAILY Cholecalciferol [Vitamin D3 (25 Mcg = 1000 Iu)] 1,000 unit PO DAILY Aspirin 81 mg PO DAILY Omeprazole 20 mg PO BID Escitalopram Oxalate [Lexapro] 20 mg PO DAILY Sulfamethoxazole/Trimethoprim [Bactrim DS 800-160 mg] 1 tab PO DAILY lamoTRIgine [LaMICtal] 100 mg PO DAILY Furosemide [Lasix] 20 mg PO Q48H Discharge Medication List ALPRAZolam [Xanax] 0.5 mg PO TID PRN 06/02/16 [History] Carboxymethylcellulose Sodium [Refresh Tears] 1 drop BOTH EYES TID PRN 06/02/16 [History] Rivaroxaban [Xarelto] 15 mg PO BID 06/02/16 [History] Metoprolol Tartrate [Lopressor] 12.5 mg PO BID 12/14/17 [History] Primidone [Mysoline] 50 mg PO TID 12/14/17 [History] Aspirin 81 mg PO DAILY 08/03/18 [History] Budesonide [Pulmicort] 0.5 mg INHALATION RT-BID 08/03/18 [History] Cholecalciferol [Vitamin D3 (25 Mcg = 1000 Iu)] 1,000 unit PO DAILY 08/03/18 [History] Docusate [Colace] 100 mg PO DAILY PRN 08/03/18 [History] Ipratropium/Albuterol Sulfate [Combivent Respimat Inhaler] 1 puff INHALATION RT- BID 08/03/18 [History] Loratadine [Claritin] 10 mg PO DAILY 08/03/18 [History] Sennosides [Senna] 8.6 mg PO DAILY PRN 08/03/18 [History] Escitalopram Oxalate [Lexapro] 20 mg PO DAILY 08/04/18 [History] Furosemide [Lasix] 20 mg PO Q48H 08/04/18 [History] Omeprazole 20 mg PO BID 08/04/18 [History] Sulfamethoxazole/Trimethoprim [Bactrim DS 800-160 mg] 1 tab PO DAILY 08/04/18 [History] lamoTRIgine [LaMICtal] 100 mg PO DAILY 08/04/18 [History] Follow up Appointment(s)/Referral(s): [facility], [NON-STAFF] -
== END 2018-08-09 14:30 | disposition short-term general hospital (02) | DRG 871 ==
LOC: INTOOBSV 15:18 → 4MS4W 15:18 → OBSVTOIN 08-09 11:17
PROVIDERS: ADMIT Family Medicine; ATTEND Family Medicine
DX: A41.9 Sepsis, unspecified organism (principal); G93.6 Cerebral edema; G11.9 Hereditary ataxia, unspecified; N39.0 Urinary tract infection, site not specified; R45.851 Suicidal ideations; E66.9 Obesity, unspecified; Z68.31 Body mass index [BMI] 31.0-31.9, adult; E78.00 Pure hypercholesterolemia, unspecified; E78.5 Hyperlipidemia, unspecified; F03.90 Unspecified dementia, unspecified severity, without behavioral disturbance, psychotic disturbance, mood disturbance, and anxiety; F32.9 Major depressive disorder, single episode, unspecified; F41.9 Anxiety disorder, unspecified; I11.0 Hypertensive heart disease with heart failure; I48.91 Unspecified atrial fibrillation; I50.9 Heart failure, unspecified; J44.9 Chronic obstructive pulmonary disease, unspecified; K21.9 Gastro-esophageal reflux disease without esophagitis; M48.02 Spinal stenosis, cervical region; Z62.810 Personal history of physical and sexual abuse in childhood; Z79.01 Long term (current) use of anticoagulants; Z79.82 Long term (current) use of aspirin; Z79.899 Other long term (current) drug therapy; Z80.51 Family history of malignant neoplasm of kidney; Z85.828 Personal history of other malignant neoplasm of skin; Z86.711 Personal history of pulmonary embolism; Z87.442 Personal history of urinary calculi; Z87.891 Personal history of nicotine dependence; Z90.711 Acquired absence of uterus with remaining cervical stump; Z96.653 Presence of artificial knee joint, bilateral; Z99.3 Dependence on wheelchair; Z98.42 Cataract extraction status, left eye; Z98.41 Cataract extraction status, right eye; M25.561 Pain in right knee; G31.89 Other specified degenerative diseases of nervous system; F10.11 Alcohol abuse, in remission; R25.1 Tremor, unspecified; Z91.81 History of falling; K44.9 Diaphragmatic hernia without obstruction or gangrene; Z79.51 Long term (current) use of inhaled steroids; K57.90 Diverticulosis of intestine, part unspecified, without perforation or abscess without bleeding; R94.6 Abnormal results of thyroid function studies; Z88.5 Allergy status to narcotic agent; Z88.0 Allergy status to penicillin; Z88.8 Allergy status to other drugs, medicaments and biological substances
CPT/HCPCS: 70551; 70552; 80048; 80053; 82390; 82525; 82607; 84443; 85025; 86255; 87086; 94640

== ENCOUNTER → 2018-11-29 | Outpatient (CLI) | payer MEDICARE, BC ==
--- NOTE | 2018-11-30 07:35 | MR ---
EXAMINATION TYPE: MR brain wo con DATE OF EXAM: 11/29/2018 COMPARISON: 08/09/2018 and 08/07/2018 HISTORY: 78-year-old female abnormal gait and abnormal clinical findings TECHNIQUE: Multiplanar, multisequence images of the brain and brainstem were acquired without IV con trast. Gadolinium could not be administered as IV access could not be secured after 6 attempts. Diffu regine weighted imaging is performed. FINDINGS: Diffusion sequence shows mild generalized increased signal throughout the cerebellum. No focal increa sed abnormal signal to suggest acute infarction. There is corresponding expansile appearance to the cerebellum with generalized increased T2-weighted signal. Stable multilocular cystic component measuring 1.2 cm in the paramedian region of the left ce rebellar hemisphere. Overall bulk appears to have slightly increased and there is now greater degree of flattening of the fourth ventricle. Increased signal extends into the left dorsal midbrain now, continues to extend into the left middle cerebellar peduncle, and now show some involvement of the left dorsal medulla. T2/FLAIR weighted sequences show background of moderate generalized supratentorial volume loss and mo derate scattered and confluent bright white matter change, similar to prior. No herniation, effacement of basal cisterns, or extra-axial fluid collection. The ventricles and sulci are age-appropriate. No hydrocephalus. Major intracranial flow voids are intact. Midline structures demonstrate normal morphology. The craniocervical junction is normal. Scattered mucosal thickening ethmoid air cells. Small amount of trapped fluid in the bilateral mastoi d air cells. Correlate for any mastoid pain to exclude mastoiditis. IMPRESSION: 1. Continued diffuse infiltrative increased T2 signal throughout the cerebellum with expansile appear ance. There is now greater degree of flattening of the fourth ventricle from the mass effect. Signal continues to extend across the left middle cerebellar peduncle but now also extends into the left kathy jensen midbrain and left dorsal medulla as well. Underlying 1.2 cm multilocular cystic change in the lef t paramedian cerebellum is stable. Infiltrative glioma should be excluded. Other infectious/inflammat ory etiologies can be correlated for clinically. No herniation or hydrocephalus seen at this time. 2. Note that IV access could not be obtained after 6 attempts. No IV contrast was given. 3. Stable moderate patchy and confluent burden of probable chronic small vessel ischemic disease.
--- NOTE | 2018-11-30 07:42 | MR ---
EXAMINATION TYPE: MR angio head wo con DATE OF EXAM: 11/29/2018 COMPARISON: MRI brain same day HISTORY: 78-year-old female with abnormal gait and abnormal clinical findings TECHNIQUE: High-resolution 3-D [id number] images focusing on the [place] were performed without contrast. 3-D reconstructions generated on a dedicated independent workstation. FINDINGS: Moderate irregular atherosclerotic narrowing along the clinoid segment of the left internal carotid a rtery Otherwise, the vertebral, basilar, and internal carotid arteries are patent. Possible moderate to severe focal stenosis at the P3/P4 left posterior cerebral artery on the rotatio nal reconstructions. No aneurysmal change of the [place]. IMPRESSION: 1. Possible moderate to severe focal atherosclerotic stenosis P3/P4 region of the left posterior cer ebral artery on the rotational reconstructions. 2. Moderate irregular atherosclerotic narrowing involving the clinoid segment left ICA. 3. Otherwise, the anterior and posterior circulations remain patent without aneurysmal change.
== END | disposition home or self-care (01) ==
LOC: RADMRIMAIN 14:07
PROVIDERS: ATTEND Family Medicine
DX: R26.9 Unspecified abnormalities of gait and mobility (principal); R68.89 Other general symptoms and signs
CPT/HCPCS: 70544; 70551